=== PATIENT | male | born 1990 | race Caucasian/White ===

== ENCOUNTER 2016-08-26 08:55 | Emergency (ER) | payer SELFPAY ==
[~2016-08-26] VITALS: Ht 177.8 cm; Wt 117.9 kg
[~2016-08-26 08:55] MED LIST: BENZONATATE100 M1 PO; KEFLEX 500MG.500 MG PO; NOMEDS *; PEN-VK500 MG PO; PHENERGAN 25MG.25 M1 PO; VOLTAREN75 MG PO
--- NOTE | 2016-08-26 09:11 | Emergency Room Report ---
History of Present Illness Time Seen by MD Hunt Presenting Problem in Triage Pt arrived:Walked Presenting Problem:PT C/O LOWER RIGHT SIDE BACK PAIN. PT DENIES ANY KNOWN INJURY OR ANY PAIN WITH URINATION. PT STATES PAIN IS WORSE WHEN HE LAYS DOWN TO TRY TO SLEEP AND THAT HE HAS PAIN THAT SOMETIMES GOES DOWN HIS RIGHT LEG Onset of symptoms date/time:/ or onset unknown for:MEDICAL HX UNKNOWN Treatment Prior to Arrival: [employer] Provided by: Sepsis Risk Assessment: Temp: 98.2 B/P: 131/86 MAP: 101 Pulse: 94 Resp: 18 Recent fever? N Clinical Suspician of Infection? N Mental Status: 1 - Regular (Normal Baseline) Sepsis Risk:Low Sepsis Risk Have you (or family members/close friends) recently traveled outside the [place]? N If Yes, where/when: Have you had exposure to infectious disease within the past month? N TB? Other? Specify: Comment The patient complains of RIGHT lower back pain since 3 days ago. No injury remembered, but he does physical labor, laying pipe. The pain worsens with certain movements particularly turning side to side as well as with certain positions. It radiates down his RIGHT medial thigh to the knee. No loss of bowel or bladder control, no numbness or weakness. No previous back problems. He has taken ibuprofen without improvement. He has trouble sleeping. ALLERGIES Coded Allergies: No Known Allergies (08/26/16) History Medical History General CAD? No Angina: No ID: No Hypertension? No Hyperlipidemia? No CHF? No DVT? No PE? No COPD? No Asthma? No Anemia? No GERD? No Gastric ulcers? No GI Bleed? No Hernia? No Thyroid Problems? No Hypothyroidism? No CVA? No Seizures? No Diabetes? No Renal Insuffiency? No End Stage Renal Disease? No UTI? No Stones? No BPH? No GB Disease: No Nephritic Syndrome? No Asplenia? No Hepatitis? No Sickle Cell Disease? No Arthritis? No Migraines? No Cataracts? No Glaucoma? No MRSA? No HIV? No TB? No Anxiety? No Depression? No Cancer? No More? No Immunization Hx DT/Tetanus 1-4 YRS Surgical Hx Previous Surgery?N Family History Family Hx Diabetes Yes Hypertension Yes Cancer Yes TB No Social History Smoking Hx Smoker: Former Smoker Tobacco: Yes Type Cigarettes Alcohol Alcohol: No Review of Systems All Other Systems Reviewed and Negative Constitutional denies fever Gastrointestinal denies abdominal pain Genitourinary denies: dysuria, frequency, hematuria. Musculoskeletal back pain Psychiatric/Neurological denies numbness, denies weakness Physical Exam Vital Signs Vital Signs Date Time Temp Pulse Resp B/P Pulse O2 O2 Flow FiO2 Ox Delivery Rate 08/26 1133 98.2 70 18 136/86 98 08/26 1129 98.2 70 18 136/86 98 08/26 1038 18 08/26 0906 98.2 94 18 131/86 97 General Appearance normal appearance, WD/WN Eye Exam - bilateral eye normal exam, bilateral eye PERRL, bilateral eye EOMI Ear, Nose, Throat hearing grossly normal, normal ENT inspection Neck normal inspection, non-tender, supple, full range of motion Respiratory Status Yes: trachea midline, chest symmetrical. No: respiratory distress. Lung Sounds bilateral: normal breath sounds, lungs clear. 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 Yes [facility] was queried for this patient? No Reason not queried - [facility] system downtime Results/Orders Laboratory Tests 08/26/16 1000: Sodium 141, Potassium 3.7, Chloride 104, Carbon Dioxide 31, BUN 11, Creatinine 1.4 H, Estimated Creat Clear 137, Estimated GFR (MDRD) 63, Glucose 99, Calcium 8.7, Total Bilirubin 0.6, AST 19, ALT 32, Alkaline Phosphatase 91, Total Protein 7.4, Albumin 3.5, Globulin 3.9 H, Albumin/Globulin Ratio 0.9 L, WBC 10.4, RBC 5.46, Hgb 16.3, Hct 48.2, MCV 88.4, RDW 13.4, Plt Count 181, MPV 7.5, Gran % 68.1, Gran # 7.1, Lymphocytes % 21.1, Monocytes % 5.4, Eosinophils % 4.6, Basophils % 0.8, Lymphocytes # 2.2, Monocytes # 0.6, Eosinophils # 0.5 H, Basophils # 0.1, PUBS MCHC 33.8, MCH 29.9 08/26/16 0930: Urine Color YELLOW, Urine Appearance CLEAR, Urine pH 6.5, Ur Specific [place] 1.015, Urine Protein TRACE H, Urine Ketones NEGATIVE, Urine Blood 1+ H, Urine Nitrate NEGATIVE, Urine Bilirubin NEGATIVE, Urine Urobilinogen 0.2, Ur Leukocyte Esterase NEGATIVE, Urine RBC OCC, Urine WBC OCC, Urine Bacteria 1+, Urine Mucus OCC, Urine Glucose NEGATIVE Current Medication Orders Sig/Tha Start time Last Medication Dose Route Stop Time Status Admin Ondansetron HCl 0 .STK-MED ONE 08/26 1012 DC .ROUTE Sodium Chloride 1,000 ML .STK-MED ONE 08/26 1012 DC IV Ketorolac 0 .STK-MED ONE 08/26 1011 DC Tromethamine .ROUTE Ketorolac 30 MG ONCE ONE 08/26 1000 DC 08/26 Tromethamine IV 08/26 1001 1038 Ondansetron HCl 4 MG ONCE ONE 08/26 1000 DC 08/26 IV 08/26 1001 1038 Sodium Chloride 10 ML PRN PRN 08/26 1000 DCD IV 08/27 0946 Sodium Chloride 1,000 ML .Q1H1M 08/26 1000 DC 08/26 IV 08/26 1100 1038 Orders Procedure Date/time Status DIET-NOTHING BY MOUTH 08/26 L Active GEN NSG/PT REQ (NOT FOR MEDS!) 08/[address] ABD/PELVIS REQ 08/26 0947 Complete IV SALINE LOCK 08/26 0947 Active CBC WITH AUTO DIFF 08/26 0947 Complete CHEM 12 PROFILE 08/26 0947 Complete URINALYSIS/COMPLETE 08/26 0920 Complete XRAY/CT/US XRAY/CT/US CT abdomen, pelvis Comment CT scan interpreted by radiologist: Small RIGHT UVJ stone with mild hydronephrosis Progress - 10:54 AM: Discussed results. The patient is feeling better. Departure Departure Disposition DC Home or Self Care(routine) Clinical Impression Primary Impression: Right ureteral calculus Condition STABLE Referrals Ann Marie MCKEON,Luis Wilson Call for appointment if stone not passed within 2-3 days. Patient Instructions DI for Kidney Stones Additional Instructions Additional instructions for KIDNEY STONE: See your physician as soon as possible for further evaluation. Return immediately if you develop a fever or have uncontrollable vomiting or uncontrollable pain. What is known about DIET and KIDNEY STONES: Most kidney stones contain calcium oxalate. The logical assumption would be that you should avoid calcium and oxalate in your diet. Contrary to what you would think, this is not necessarily the case. What is actually recommended for kidney stone prevention is a diet that contains MODERATELY HIGH AMOUNTS OF CALCIUM and is LOW IN SODIUM with PLENTY OF FLUIDS. Avoiding oxalate containing foods is recommended by some experts, but is controversial. Following the DASH (Dietary Approaches to Stop Hypertention) has been shown to significantly reduce the incidence of kidney stones. The DASH diet encourages you to reduce the sodium in your diet and eat a variety of foods rich in nutrients that help lower blood pressure, such as potassium, calcium and magnesium. Recommendations: Fluids: It is widely agreed upon that you need to drink plenty of fluids. A minimum would be 8-10 glasses (8 oz each) of fluid per day. Some experts recommend as much as 14-15 glasses a day. Sodium: The way to lower calcium in your urine is to lower your sodium intake. Try not to get more than 1500 mg a day. Calcium: Dietary calcium prevents absorption of oxalate. Make sure you get about 1000 to 1200 mg a day. You can get enough calcium from dairy products without taking supplements. Do not overdo it. Calcium should be ingested with meals, not in between meals. You need to get your calcium at mealtime to decrease the absorption of oxalate from other foods. Oxalate: Although some experts recommend avoiding oxalate in your diet, there have been no studies that prove this works. Eating more calcium will reduce oxalate absorption, and is probably all that is needed to reduce oxalate in your urine. Oxalate containing foods are generally good for you in all other respects - leafy greens, nuts, etc... So avoiding them unnecessarily might not be the best thing for your health. If you want to do something to avoid oxalate , avoid spinach and rhubarb - those are extremely high in oxalate (or at least eat a high calcium meal with these). ALSO: If you retrieve your stone by straining your urine, take it to your physician for stone analysis, which can help tailor your dietary recommendations. For further reading, check out the [facility] web page about the kidney stone diet: [email or web address] Additional instructions for CONTROLLED SUBSTANCES: You have been prescribed a medication that is a controlled substance. Controlled substances include pain medications known as opiates and sedative nerve medications known as benzodiazepines. Some common opiates include: Codeine (such as Tylenol #3) Hydrocodone (Vicodin, Lortab, Lorcet, [place]) Oxycodone (Percocet, Percodan, Oxycodone, Oxy IR) Some common benzodiazepines include: Diazepam (Valium) Lorazepam (Ativan) Alprazolam (Xanax) Clonazepam (Klonopin) Oxazepam (Serax) All of these controlled substances are highly addictive and frequently abused. Misuse can and frequently does lead to addiction as well as overdose and . Short term supplies, 3 days or less, are prescribed because of the highly addictive nature of the medication. Any of the controlled substance medication NOT taken should be disposed of properly and NOT SAVED. The recommended method of disposing of unused medications is: Place the medicines in a sealable plastic bag. If the medicine is a solid, crush it or add water to dissolve it. Add something undesirable (cat litter, coffee grounds, etc.) Dispose of sealed bag in household trash Do not flush or pour unused medicines down a sink or drain. Also, because of the addictive nature and frequent abuse, these medications are sometimes stolen. These medications should be kept in a safe place where they cannot be stolen. Do not keep them in your car or purse. Lost or stolen prescriptions for controlled substances WILL NOT BE REFILLED in this emergency department, regardless of whether a police report was filed. Prescriptions Current Visit Scripts TAMSULOSIN HCL (Flomax) 0.4 MG PO QHS #10 CAP Ondansetron (Zofran 4MG Odt) 4 MG PO Q8HP PRN NAUSEA AND VOMITING #10 ODT OXYCODONE HCL/ACETAMINOPHEN (Percocet 5-325 MG Tablet) 1 TAB PO Q6HP PRN pain #10 TAB Ibuprofen (Ibuprofen 800MG) 800 MG PO Q8HP PRN pain #15 TAB ED Critical Care Critical Care No Electronically Signed by Alli Pulido MD 08/26/16 at 123
[2016-08-26 09:34] LABS: URINE BILIRUBIN - DIPSTICK NEGATIVE (NEG); URINE BLOOD 1+ (NEG)
--- OUTSIDE RECORDS SUMMARY | 2016-08-26 09:42 | External Medical Summary Rpt ---
Author Author , MAYNOR MCGUIRE Address Unknown Phone [email or web address] Care Team Providers Care Vibration Engineer Name Role Phone ROSMERY ESPINAL, Unavailable Unavailable ROSMERY ESPINAL WILLIAM A, Unavailable Unavailable [facility], Unavailable [facility]available [facility] YASMIN LOW, Unavailable Unavailable YASMIN LOW MICHAEL S, Unavailable Unavailable FRED BANGURA RITA R, Unavailable Unavailable BALB[facility] LEIVA [facility], [facility] Unavailable [facility], [facility] CHAPARRO JACKSON, Unavailable Unavailable CHAPARRO JACKSON NICHOLS Unavailable Unavailable MARLENE SIMS Unavailable Unavailable MERCEDES MONTGOMERY, Unavailable Unavailable MERCEDES ROSARIO [id number], Unavailable Unavailable [id number] KIT LINDA, Unavailable Unavailable KIT LINDA BABATUNDE O, Unavailable Unavailable NEERAJ SLATER Purpose Continuity of Care Document - 10-23-2006 through 2016 Problems Code Diagnosis DOS Provider Status 81860 PAIN IN 01-17-2010 MARLENE LONG JOINT, HAND 3530 BRACHIAL 07-06-2009 [facility]US FAMILY LESIONS CHIROPRACTI C 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 C 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 C 7398 NONALLOPATH 07-06-[facility] IC LESION FAMILY OF RIB CAGE CHIROPRACTI NEC C 486 PNEUMONIA, 12-03-2008 [facility] 4019 UNSPECIFIED 11-26-2008 [facility] 08349 HYPOXEMIA 11-26-2008 [facility] 4660 ACUTE 11-24-2008 [facility] 490 BRONCHITIS 11-24-2008 [place] NOT EMERGENCY SPECIFIED SERVICES ACUTE OR ASSOCIATES CHRONIC 7862 COUGH 11-24-2008 [facility] 6926 CONTACT 08-06-2008 MARLENE DERMATITIS& MERCEDES A OTHER ECZEMA DUE TO PLANTS 3670 HYPERMETROP 04-23-2008 RUBEN IA VISION 4659 ACUTE URIS 04-19-2008 RENE ROSARIO MERCEDES A UNSPECIFIED SITE 46071 UNSPECIFIED 02-24-2008 [facility] SITE OF [employer] SPRAIN AND STRAIN E8490 PLACE OF 02-24-2008 [place] [facility] E9278 OTH 02-24-2008 [place] OVEREXERT&S MEDICAL TRENUOUS&RE IMAGING PETITIVE ASSOC[facility]ATES MVMNTS/LOAD S 5589 OTH&UNSPEC 01-16-2008 ISRRAEL ROSARIOFECTMARY Zimmer [facility] ITIS&COLITI S 7242 LUMBAGO 12-16-2007 MERCEDES ROSARIO 61303 CHEST PAIN 09-27-2007 ALY ROSARIOIFIED MERCEDES Zimmer 4619 ACUTE 07-01-2007 [facility] UNSPECIFIED INC 7840 HEADACHE 07-01-2007 [facility] 4730 CHRONIC 10-23-2006 MARLENE MAXILLARY MERCEDES Z[facility] SINUSITIS Medications Na ND Rx Da Fi Fi Am Da Di Ph RX Ph St me C No te ll ll ou ys ag ar # ys at rm s nt no ma ic us Or Da si cy ia de te s n re d 59 10 11 00 8. 16 RI 80 OLY Ac 31 -1 -0 50 TE 45 CO ti 00 6- 5- 0 83 OK ve 57 20 20 AI 92 09 09 D JE 0 PH SS AR IC M A #3 D 93 8 CL 00 10 11 00 14 7 RI 80 OLY Ac AR 09 -1 -0 .0 TE 45 CO ti IT 37 6- 5- 00 82 OK ve HR 15 20 20 AI OM 80 09 09 D JE YC 6 PH SS IN AR IC M A 50 #3 D 0 93 MG 8 TA BL ET ME 00 10 10 00 50 12 RI 80 NI Ac TH 60 -0 -2 .0 TE 28 CH ti OC 34 5- 2- 00 54 OL ve AR 48 20 20 AI S BA 62 09 09 D LORE MO 1 PH E L AR A 75 M 0 #3 MG 93 8 TA BL ET CE 00 10 10 00 30 10 RI 80 NI Ac PH 14 -1 -2 .0 TE 37 CH ti AL 39 2- 2- 00 54 OL ve EX 89 20 20 AI S IN 70 09 09 D LORE 1 PH E 50 AR A 0 M MG #3 93 CA 8 PS UL E 60 10 10 00 12 4 RI 80 NI Ac 25 -1 -2 0. TE 37 CH ti 80 2- 2- 00 53 OL ve 23 20 20 0 AI S 91 09 09 D LORE 6 PH E AR A M #3 93 8 AK 68 10 10 00 12 4 CL 20 SO Ac OM 38 -1 -2 .0 IN 26 KA ti ET 20 4- 2- 00 IC 88 N ve FARAH 04 20 20 BA ZI 10 09 09 PH BA NE 1 AR TU MA ND 25 CY E O MG TA BL ET HY 00 06 07 00 28 8 CL [address] 16 -2 -0 .3 IN 62 CH ti OC 80 6- 2- 50 IC 14 OL ve OR 01 20 20 S TI 53 09 09 PH LORE SO 1 AR E NE MA A CY 1% CR EA M CE 00 03 06 00 30 10 RI 77 NI Ac PH 14 -0 -0 .0 TE 64 CH ti AL 39 9- 4- 00 72 OL ve EX 89 20 20 AI S IN 70 09 09 D LORE 1 PH E 50 AR A 0 M MG #3 93 CA 8 PS UL E CE 00 03 03 00 30 10 RI 77 NI Ac PH 14 -0 -2 .0 TE 42 CH ti AL 39 9- 6- 00 58 OL ve EX 89 20 20 AI S IN 70 09 09 D LORE 1 PH E 50 AR A 0 M MG #3 93 CA 8 PS UL E BU 00 02 02 00 36 3 RI 76 NI Ac TA 60 -0 -1 .0 TE 90 CH ti LB 32 2- 2- 00 69 OL ve -A 54 20 20 AI S CE 42 09 09 D LORE TA 1 PH E VT AR A N- M CA #3 FF 93 8 50 -3 25 -4 0 BU 00 11 12 00 36 3 RI 75 NI Ac TA 60 -2 -0 .0 TE 98 CH ti LB 32 6- 4- 00 84 OL ve -A 54 20 20 AI S CE 42 08 08 D LORE TA 1 PH E VT AR A N- M CA #3 FF 93 8 50 -3 25 -4 0 ME 00 11 11 00 50 12 RI 75 NI Ac TH 60 -0 -2 .0 TE 66 CH ti OC 34 4- 0- 00 05 OL ve AR 48 20 20 AI S BA 62 08 08 D LORE MO 1 PH E L AR A 75 M 0 #3 MG 93 8 TA BL ET BU 00 10 10 00 36 4 RI 75 NI Ac TA 60 -0 -0 .0 TE 23 CH ti LB 32 3- 9- 00 85 OL ve -A 54 20 20 AI S CE 42 08 08 D LORE TA 1 PH E VT AR A N- M CA #3 FF 93 8 50 -3 25 -4 0 00 09 10 00 18 2 RI 75 NI Ac 78 -2 -0 .0 TE 06 CH ti 11 2- 9- 00 42 OL ve 26 20 20 AI S 20 08 08 D LORE 1 PH E AR A M #3 93 8 BU 00 09 09 00 36 4 RI 74 NI Ac TA 60 -1 -2 .0 TE 93 CH ti LB 32 2- 6- 00 57 OL ve -A 54 20 20 AI S CE 42 08 08 D LORE TA 1 PH E VT AR A N- M CA #3 FF 93 8 50 -3 25 -4 0 BU 00 07 08 00 36 4 RI 74 NI Ac TA 60 -2 -1 .0 TE 30 CH ti LB 32 8- 4- 00 48 OL ve -A 54 20 20 AI S CE 42 08 08 D LORE TA 1 PH E VT AR A N- M CA #3 FF 93 8 50 -3 25 -4 0 BU 00 06 07 00 36 4 RI 73 NI Ac TA 60 -2 -0 .0 TE 81 CH ti LB 32 0- 3- 00 50 OL ve -A 54 20 20 AI S CE 42 08 08 D LORE TA 1 PH E VT AR A N- M CA #3 FF 93 8 50 -3 25 -4 0 BU 00 05 06 00 36 4 RI 73 NI Ac TA 60 -2 -0 .0 TE 40 CH ti LB 32 0- 5- 00 08 OL ve -A 54 20 20 AI S CE 42 08 08 D LORE TA 1 PH E VT AR A N- M CA #3 FF 93 8 50 -3 25 -4 0 00 05 06 00 10 5 RI 73 No Ac 59 -1 -0 .0 TE 38 t ti 10 8- 5- 00 15 Av ve 33 20 20 AI ai 90 08 08 D la 1 PH bl AR e M #3 93 8 CE 00 05 06 00 21 7 RI 73 No Ac PH 09 -1 -0 .0 TE 38 t ti AL 33 8- 5- 00 16 Av ve EX 14 20 20 AI ai IN 70 08 08 D la 1 PH bl 50 AR e 0 M MG #3 93 CA 8 PS UL E CE 00 05 05 00 30 10 RI 73 No Ac PH 09 -0 -2 .0 TE 20 t ti AL 33 6- 2- 00 47 Av ve EX 14 20 20 AI ai IN 70 08 08 D la 1 PH bl 50 AR e 0 M MG #3 93 CA 8 PS UL E 60 05 05 00 12 4 RI 73 No Ac 25 -0 -2 0. TE 20 t ti 80 6- 2- 00 48 Av ve 23 20 20 0 AI ai 91 08 08 D la 6 PH bl AR e M #3 93 8 60 02 04 00 12 4 RI 72 No Ac 25 -2 -0 0. TE 17 t ti 80 6- 7- 00 27 Av ve 23 20 20 0 AI ai 91 08 08 D la 6 PH bl AR e M #3 93 8 CE 00 02 04 00 30 10 RI 72 No Ac PH 09 -2 -0 .0 TE 17 t ti AL 33 6- 7- 00 26 Av ve EX 14 20 20 AI ai IN 70 08 08 D la 1 PH bl 50 AR e 0 M MG #3 93 CA 8 PS UL E AM 00 02 03 00 30 10 RI 71 No Ac OX 09 -0 -2 .0 TE 79 t ti IC 33 2- 6- 00 90 Av ve IL 10 20 20 AI ai LI 90 08 08 D la N 5 PH bl 50 AR e 0 M MG #3 93 CA 8 PS UL E 60 02 03 00 12 5 RI 71 No Ac 25 -0 -2 0. TE 79 t ti 80 2- 6- 00 89 Av ve 23 20 20 0 AI ai 91 08 08 D la 6 PH bl AR e M #3 93 8 Procedures Procedure DOS Code Location Performer Comment RADEX 48756 [facility] MINIMUM 3 INC INC VIEWS CHIROPRAC 15256 XIANG LEIVA, TIC 0 FAMILY BALBINA R MANIPULAT CHIROPRAC JÚNIOR TX TIC SPINAL 3-4 REGIONS APPL 05-26-201 78409 XIANG LEIVA, MODALITY 0 FAMILY BALB[place] R 1/> AREAS CHIROPRAC TRACTION TIC MECHANICA L APPL 05788 XIANG LEIVA, MODALITY 0 FAMILY BALB[place] R 1/> AREAS CHIROPRAC ELEC TIC STIMJ UNATTENDE D CHIROPRAC 07031 XIANG LEIVA, TIC 0 FAMILY [place] R MANIPLTV CHIROPRAC TX TIC EXTRASPIN AL 1/> REGION THERAPEUT 54907 XIANG LEIVA, IC PX 1/> 0 FAMILY BALBINA R AREAS CHIROPRAC EACH 15 TIC MIN EXERCISES THERAPEUT 91831 XIANG LEIVA, ACTVITY 0 FAMILY BALB[place] R DIRECT PT CHIROPRAC CONTACT TIC EACH 15 MIN STRAPPING 98389 XIANG LEIVA, THORAX 0 FAMILY BAL[place] R CHIROPRAC TIC STRAPPING 38936 XIANG LEIVA, THORAX 0 FAMILY BALBINA R CHIROPRAC TIC THERAPEUT 21416 XIANG LEIVA, ACTVITY 0 FAMILY BALB[place] R DIRECT PT CHIROPRAC CONTACT TIC EACH 15 MIN THERAPEUT 89913 XIANG LEIVA, IC PX 1/> 0 FAMILY BALBINA R AREAS CHIROPRAC EACH 15 TIC MIN EXERCISES CHIROPRAC 34869 XIANG LEIVA, TIC 0 FAMILY BALB[place] R MANIPLTV CHIROPRAC TX TIC EXTRASPIN AL 1/> REGION APPL 79195 XIANG LEIVA, MODALITY 0 FAMILY BALBINA R 1/> AREAS CHIROPRAC TRACTION TIC MECHANICA L APPL 15517 XIANG LEIVA, MODALITY 0 FAMILY BALBINA R 1/> AREAS CHIROPRAC ELEC TIC STIMJ UNATTENDE D CHIROPRAC 92300 XIANG LEIVA, TIC 0 FAMILY BALB[place] R MANIPULAT CHIROPRAC JÚNIOR TX TIC SPINAL 3-4 REGIONS CHIROPRAC 84176 XIANG LEIVA, TIC 0 FAMILY BALB[place] R MANIPULAT CHIROPRAC JÚNIOR TX TIC SPINAL 3-4 REGIONS APPL 52300 XIANG LEIVA, MODALITY 0 FAMILY BALBINA R 1/> AREAS CHIROPRAC TRACTION TIC MECHANICA L APPL 31065 XIANG LEIVA, MODALITY 0 FAMILY BALBINA R 1/> AREAS CHIROPRAC ELEC TIC STIMJ UNATTENDE D CHIROPRAC 26118 XIANG LEIVA, TIC 0 FAMILY BAL[place] R MANIPLTV CHIROPRAC TX TIC EXTRASPIN AL 1/> REGION THERAPEUT 24102 XIANG LEIVA, IC PX 1/> 0 FAMILY BALB[place] R AREAS CHIROPRAC EACH 15 TIC MIN EXERCISES THERAPEUT 39538 XIANG LEIVA, ACTVITY 0 FAMILY BAL[place] R DIRECT PT CHIROPRAC CONTACT TIC EACH 15 MIN THERAPEUT 68960 XIANG ABBIE, IC PX 1/> 0 FAMILY BALB[place] R AREAS CHIROPRAC EACH 15 TIC MIN EXERCISES CHIROPRAC 05100 XIANG LEIVA, TIC 0 FAMILY [place] R MANIPULAT CHIROPRAC JÚNIOR TX TIC SPINAL 1-2 REGIONS APPL 14549 XIANG LEIVA, MODALITY 0 FAMILY BALBINA R 1/> AREAS CHIROPRAC ELEC TIC STIMJ UNATTENDE D MANUAL 48753 XIANG LEIVA, THERAPY 0 FAMILY BALBINA R TQS 1/> CHIROPRAC REGIONS TIC EACH 15 MINUTES CHIROPRAC 55540 XIANG LEIVA, TIC 0 FAMILY [place] R MANIPLTV CHIROPRAC TX TIC EXTRASPIN AL 1/> REGION CHIROPRAC 74786 XIANG LEIVA, TIC 0 FAMILY BALB[place] R MANIPULAT CHIROPRAC JÚNIOR TX TIC SPINAL 3-4 REGIONS APPL 90747 XIANG LEIVA, MODALITY 0 FAMILY BALBINA R 1/> AREAS CHIROPRAC TRACTION TIC MECHANICA L APPL 44324 XINAG LEIVA, MODALITY 0 FAMILY BALBINA R 1/> AREAS CHIROPRAC ELEC TIC STIMJ UNATTENDE D CHIROPRAC 12624 XIANG LEIVA, TIC 0 FAMILY [place] R MANIPLTV CHIROPRAC TX TIC EXTRASPIN AL 1/> REGION THERAPEUT 94319 LYLEMarkLATOYA ABBIE, IC PX 1/> 0 FAMILY BALBINA R AREAS CHIROPRAC EACH 15 TIC MIN EXERCISES CHIROPRAC 79540 XIANG LEIVA, TIC 0 FAMILY BALB[place] R MANIPULAT CHIROPRAC JÚNIOR TX TIC SPINAL 1-2 REGIONS CHIROPRAC 93888 XIANG LEIVA, TIC 0 FAMILY BALBINA R MANIPLTV CHIROPRAC TX TIC EXTRASPIN AL 1/> REGION THERAPEUT 51205 XIANG LEIVA, IC PX 1/> 0 FAMILY BALBINA R AREAS CHIROPRAC EACH 15 TIC MIN EXERCISES APPL 53928 XIANG LEIVA, MODALITY 0 FAMILY BALBINA R 1/> AREAS CHIROPRAC ELEC TIC STIMJ UNATTENDE D MANUAL 88770 LYLEMAURISIO LEIVA, THERAPY 0 FAMILY BALBINA R TQS 1/> CHIROPRAC REGIONS TIC EACH 15 MINUTES APPL 34187 XIANG ABBIE, MODALITY 0 FAMILY BALBINA R 1/> AREAS CHIROPRAC TRACTION TIC MECHANICA L STRAPPING 24524 XIANG LEIVA, THORAX 0 FAMILY BALBINA R CHIROPRAC TIC MANUAL 66452 LYLEMAURISIO LEIVA THERAPY 0 FAMILY BALBINA R TQS 1/> CHIROPRAC REGIONS TIC EACH 15 MINUTES APPL 17283 XIANG LEIVA, MODALITY 0 FAMILY BALBINA R 1/> AREAS CHIROPRAC TRACTION TIC MECHANICA L THERAPEUT 00162 XIANG ABBIE, IC PX 1/> 0 FAMILY BALBINA R AREAS CHIROPRAC EACH 15 TIC MIN EXERCISES CHIROPRAC 54752 XIANG LEIVA, TIC 0 FAMILY BALB[place] R MANIPULAT CHIROPRAC JÚNIOR TX TIC SPINAL 1-2 REGIONS CHIROPRAC 83336 XIANG ABBIE, TIC 0 FAMILY BALB[place] R MANIPLTV CHIROPRAC TX TIC EXTRASPIN AL 1/> REGION ROM 24549 LYLEMAURISIO LEIVA, LYDIA&REPR 0 FAMILY BALBINA R T EA XTR CHIROPRAC EX TIC HAND/EA TRNK SCTJ SPI STRAPPING 44939 LYLEMAURISIO LEIVA, THORAX 0 FAMILY BALBINA R CHIROPRAC TIC CHIROPRAC 47527 XIANG LEIVA, TIC 0 FAMILY BALB[place] R MANIPLTV CHIROPRAC TX TIC EXTRASPIN AL 1/> REGION STRAPPING 30490 XIANG LEIVA, THORAX 0 FAMILY BALBINA R CHIROPRAC TIC THERAPEUT 37417 XIANG LEIVA, IC PX 1/> 0 FAMILY BALBINA R AREAS CHIROPRAC EACH 15 TIC MIN EXERCISES APPL 88179 XIANG LEIVA, MODALITY 0 FAMILY BALBINA R 1/> AREAS CHIROPRAC TRACTION TIC MECHANICA L MANUAL 75426 XIANG LEIVA, THERAPY 0 FAMILY BALBINA R TQS 1/> CHIROPRAC REGIONS TIC EACH 15 MINUTES CHIROPRAC 28016 XIANG LEIVA, TIC 0 FAMILY BALB[place] R MANIPULAT CHIROPRAC JÚNIOR TX TIC SPINAL 3-4 REGIONS MANUAL 18612 XIANG LEIVA, THERAPY 0 FAMILY BALBINA R TQS 1/> CHIROPRAC REGIONS TIC EACH 15 MINUTES CHIROPRAC 67056 XIANG LEIVA, TIC 0 FAMILY BALB[place] R MANIPULAT CHIROPRAC JÚNIOR TX TIC SPINAL 1-2 REGIONS APPL 63254 XIANG LEIVA, MODALITY 0 FAMILY BALBINA R 1/> AREAS CHIROPRAC ELEC TIC STIMJ UNATTENDE D APPL 02328 XAING LEIVA, MODALITY 0 FAMILY BALBINA R 1/> AREAS CHIROPRAC TRACTION TIC MECHANICA L THERAPEUT 82825 XIANG LEIVA, IC PX 1/> 0 FAMILY BALBINA R AREAS CHIROPRAC EACH 15 TIC MIN EXERCISES CHIROPRAC 99930 XIANG LEIVA, TIC 0 FAMILY [place] R MANIPLTV CHIROPRAC TX TIC EXTRASPIN AL 1/> REGION RADEX 16992 XIANG LEIVA, SPINE 0 FAMILY BALB[place] R CERVICAL CHIROPRAC 2 OR 3 TIC VIEWS RADEX 39883 XIANG LEIVA, SPINE 0 FAMILY BALB[place] R LUMBOSACR CHIROPRAC AL 2/3 TIC VIEWS CHIROPRAC 74006 XIANG LEIVA, TIC 0 FAMILY BALB[place] R MANIPLTV CHIROPRAC TX TIC EXTRASPIN AL 1/> REGION THERAPEUT 72772 XIANG LEIVA, IC PX 1/> 0 FAMILY BALB[place] R AREAS CHIROPRAC EACH 15 TIC MIN EXERCISES APPL 44051 LYLELATOYA LEIVA, MODALITY 0 FAMILY BALB[place] R 1/> AREAS CHIROPRAC ELEC TIC STIMJ UNATTENDE D SELF-CARE 84228 INWOODLATOYA LEIVA, /HOME 0 FAMILY BALB[place] R MGMT CHIROPRAC TRAINING TIC EACH 15 MINUTES CHIROPRAC 60828 XIANG LEIVA, TIC 0 FAMILY BAL[place] R MANIPULAT CHIROPRAC JÚNIOR TX TIC SPINAL 3-4 REGIONS STRAPPING 12576 FAYETTEMAURISIO LEIVA, THORAX 0 FAMILY [place] R CHIROPRAC TIC RADIOLOGI 54863 [place] Hank JACKSON EXAM 9 [facility] CHEST 2 IMAGING VIEWS ASSOCIATE FRONTAL&L S ATERAL INITIAL 99278 [facility] ESP[facility] 9 PRACTICE ROSMERY [place] ON ASSOCIATE CARE/DAY S OF 30 [facility]K FABRICE , PSYCHIATRIC RADIOLOGI 32938 [facility]LL[facility] C EXAM 9 [facility] CHEST 2 INC INC VIEWS FRONTAL&L ATERAL IAADI 88580 [facility] INFLUENZA 9 [facility] B VIRUS INC INC IAADI 37327 [facility] GE[facility] INFFLUENZ 9 [facility] A A [facility]IRUS INC INC RADIOLOGI 60507 [facility]I GELLER C EXAM 9 [facility] CHEST 2 INC INC VIEWS FRONTAL&L ATERAL FRAMES V2020 RUBEN LINDA, PURCHASES 9 VISION KIT Goldsmith OPHTH 26536 RUBEN LINDA MEDICAL 9 [facility]ISION [facility]IT [facility] XM&EVAL COMPRE NEW PT 1/> VST FITTING 06596 RUBEN LINDA, SPECTACLE 9 VISION [facility] [employer] S XCPT APHAKIA MONOFOCAL SPHERE V2100 RUBEN LINDA SINGLE 9 VISION [facility]IT [facility] VISION PLANO +/- 4.00 PER LENS RADEX 15346 [place] DEVANTE, ANKLE 9 MEDICAL YASMIN COMPLETE IMAGING MINIMUM 3 ASSOCIATE VIEWS S RADEX 09035 [facility] FOOT 9 [facility] COMPLETE INC INC MINIMUM 3 VIEWS 3D 32053 ERICKSON RENETTA, RENDERING 8 [facility] IMAGING W/INTERP& [place]OCI[place] [address] [facility] MAXILLOFA 8 [facility] CIAL W/O INC INC CONTRAST MATERIAL 3D 75779 [facility] GE[facility] RENDERING 8 [facility] W/INTERP INC INC & [place] [address] ERICKSON RENETTA, HEAD/BRAI 8 MEDICAL [facility] N W/O IMAGING CONTRAST ASSOCIATE MATERIAL S Encounters Encounter Start End Date Code Location Performer Type Date OFFICE 20924 MARLENE REDDYPATIEN 0 0 MERCEDES MERCEDES T VISIT 15 MINUTES OFFICE 14801 MARLENE REDDYPATIEN 0 0 MERCEDES MERCEDES T VISIT 15 MINUTES [facility]OSPITAL [facility] - 0 0 [facility]PATI[facility] INC T OFFICE 11277 PATH[facility]K DANIEL LEIVA 0 0 FAMILY BALBINA R T NEW 20 CHIROPRAC MINUTES [facility] - 9 9 [facility] OUTPATIEN INC HOSPITAL SAMANTHA - 9 9 [facility] EMERGENCY 79160 ERNESTINA JOHNSON DEPT 9 9 EMERGENCY , TOMY VISIT SERVICES A HIGH SEVERITY& ASSOCIATE THREAT S FUN EMERGENCY 51228 [facility]I 9 9 [facility] DEPARTMEN INC T VISIT MODERATE SEVERITY EMERGENCY 87440 ERNESTINA SLATER, 9 9 EMERGENCY [facility] DEPARTMEN SERVICES O T VISIT HIGH/URGE ASSOCIATE NT S SEVERITY HOSPITAL [facility] - 9 9 [facility] OUTPATIEN INC T OFFICE 29111 MARLENE ROSARIO OUTPATIEN 9 9 MERCEDES A MERCEDES A T VISIT 15 MINUTES OFFICE 32240 MARLENE ROSARIO OUTPATIEN 9 9 MERCEDES A MERCEDES A T VISIT 15 MINUTES OFFICE 40484 MARLENE ROSARIO OUTPATIEN 9 9 MERCEDES A MERCEDES A T VISIT 15 MINUTES OFFICE 41204 MARLENE ROSARIO OUTPATIEN 9 9 MERCEDES A MERCEDES A T VISIT 15 MINUTES [facility]OSPITAL [facility] - 9 9 [facility] OFF[facility] 60299 MARLENE ROSARIO OUTPATIEN 9 9 MERCDEES A MERCEDES A T VISIT 15 MINUTES EMERGENCY 95665 ANDRES BANGURA, 9 9 [facility] T VISIT ON MODERATE SEVERITY HOSPITAL [facility] - 9 9 [facility] T EMER[facility]ENC[facility] 31123 [facility] 9 9 [facility]ISIT LOW/MODER SEVERITY OFFICE 77044 MARLENE ROSARIO OUTPATIEN 8 8 MERCEDES A MERCEDES A T VISIT 15 MINUTES OFFICE 43045 MARLENE ROSARIO OUTPATIEN 8 8 MERCEDES A MERCEDES A T VISIT 15 MINUTES OFFICE 65565 MARLENE ROSARIO OUTPATIEN 8 8 MERCEDES A MERCEDES A T VISIT 15 MINUTES OFFICE 83175 MARLENE ROSARIO OUTPATIEN 8 8 MERCEDES A MERCEDES A T VISIT 15 MINUTES EMERGENCY 56396 [facility] 8 8 [facility]ISIT LOW/MODER SEVERITY HOSPITAL [facility] - 8 8 [facility] OUTPATIEN INC T EMERGENCY 57066 [facility]I 8 8 [facility] LOW/MODER SEVERITY HOSPITAL IYMI - 8 8 [facility] OUTPATIEN INC T OFFICE 66850 MARLENE ROSARIO OUTPATIEN 7 7 MERCEDES Zimmer T VISIT 15 MINUTES OFFICE 45449 MARLENE ROSARIO OUTPATIEN 7 7 MERCEDES Zimmer T VISIT 15 MINUTES
--- OUTSIDE RECORDS SUMMARY | 2016-08-26 09:42 | External Medical Summary Rpt ---
Author Author , MAYNOR MCGUIRE Address Unknown Phone [email or web address] Care Team Providers Care Hair Spinner Name Role Phone ROSMERY ESPINAL, Unavailable Unavailable ROSMERY ESPINAL WILLIAM A, Unavailable Unavailable [facility], Un[facility] YASMIN LOW, Unavailable Unavailable YASMIN LOW MICHAEL S, Unavailable Unavailable FRED BANGURA RITA R, Unavailable Unavailable BALB[facility] LEIVA [facility], [facility] Unavailable [facility], [facility] CHAPARRO JACKSON, Unavailable Unavailable CHAPARR[facility] JACKSON NICHOLS Unavailable Unavailable MARLENE SIMS Unavailable Unavailable MERCEDES MONTGOMERY, Unavailable Unavailable MERCEDES ROSARIO [id number], Unavailable Unavailable [id number] KIT LINDA, Unavailable Unavailable KIT LINDA BABATUNDE O, Unavailable Unavailable NEERAJ SLATER Purpose Continuity of Care Document - 10-23-2006 through 2016 Problems Code Diagnosis DOS Provider Status 20909 PAIN IN 01-17-2010 MARLENE LONG JOINT, HAND 3530 BRACHIAL 07-06-2009 [place] [facility] LESIONS CHIROPRACTI C 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 PELVIS CHIROPRACTI C 7398 NONALLOPATH 07-06-[facility] IC LESION FAMILY OF RIB CAGE CHIROPRACTI NEC C 486 PNEUMONIA, 12-03-2008 [facility] 4019 UNSPECIFIED 11-26-2008 [facility] 92993 HYPOXEMIA 11-26-2008 [facility] 4660 ACUTE 11-24-2008 [facility] 490 BRONCHITIS 11-24-2008 [facility] NOT EMERGENCY SPECIFIED SERVICES ACUTE OR ASSOCIATES CHRONIC 7862 COUGH 11-24-2008 [place] [facility] 6926 CONTACT 08-06-2008 MARLENE DERMATITIS& MERCEDES A OTHER ECZEMA DUE TO PLANTS 3670 HYPERMETROP 04-23-2008 R[facility] IA [facility] 4659 ACUTE URIS 04-19-2008 RENE ROSARIO MERCEDES A UNSPECIFIED SITE 19277 UNSPECIFIED 02-24-2008 [place] [facility] OF [facility] SPRAIN AND STRAIN E8490 PLACE OF 02-24-2008 [place] OCCURRENCE, [facility] E9278 OTH 02-24-2008 [place] OVEREXERT&S MEDICAL TRENUOUS&RE IMAGING PETITIVE ASSOC[facility]ATES MVMNTS/LOAD S 5589 OTH&UNSPEC 01-16-2008 ISRRAEL ROSARIOFECTMARY Zimmer [facility] ITIS&COLITI S 7242 LUMBAGO 12-16-2007 MERCEDES ROSARIO 76343 CHEST PAIN 09-27-2007 ALY ROSARIOIFIED MERCEDES Zimmer 4619 ACUTE 07-01-2007 [place] [facility] UNSPECIFIED INC 7840 HEADACHE 07-01-2007 [facility] 4730 CHRONIC 10-23-2006 MARLENE [...] E AR A M #3 93 8 MI 68 10 10 00 12 4 CL [...] 09 D LORE TA 1 PH E CA AR A N- M CA #3 FF 93 8 50 -3 25 -4 0 BU 00 11 12 00 36 3 RI 75 NI Ac TA 60 -2 -0 .0 TE 98 CH ti LB 32 6- 4- 00 84 OL ve -A 54 20 20 AI S CE 42 08 08 D LORE TA 1 PH E CA AR A N- M CA #3 FF [...] 08 D LORE TA 1 PH E CA AR A N- M CA #3 FF [...] 08 D LORE TA 1 PH E CA AR A N- M CA #3 FF 93 8 50 -3 25 -4 0 BU 00 07 08 00 36 4 RI 74 NI Ac TA 60 -2 -1 .0 TE 30 CH ti LB 32 8- 4- 00 48 OL ve -A 54 20 20 AI S CE 42 08 08 D LORE TA 1 PH E CA AR A N- M CA #3 FF 93 8 50 -3 25 -4 0 BU 00 06 07 00 36 4 RI 73 NI Ac TA 60 -2 -0 .0 TE 81 CH ti LB 32 0- 3- 00 50 OL ve -A 54 20 20 AI S CE 42 08 08 D LORE TA 1 PH E CA AR A N- M CA #3 FF 93 8 50 -3 25 -4 0 BU 00 05 06 00 36 4 RI 73 NI Ac TA 60 -2 -0 .0 TE 40 CH ti LB 32 0- 5- 00 08 OL ve -A 54 20 20 AI S CE 42 08 08 D LORE TA 1 PH E CA AR A N- M CA #3 FF [...] Procedure DOS Code Location Performer Comment RADEX 74205 [facility] HAND [facility] MINIMUM 3 INC INC VIEWS CHIROPRAC 37879 XIANG LEIVA, TIC 0 FAMILY [place] R MANIPULAT CHIROPRAC JÚNIOR TX TIC SPINAL 3-4 REGIONS APPL 05-26-201 12086 XIANG LEIVA, MODALITY 0 FAMILY [place] R 1/> AREAS CHIROPRAC TRACTION TIC MECHANICA L APPL 07910 XIANG LEIVA, MODALITY 0 FAMILY [place] R 1/> AREAS CHIROPRAC ELEC TIC STIMJ UNATTENDE D CHIROPRAC 31473 XIANG LEIVA, TIC 0 FAMILY [place] R MANIPLTV CHIROPRAC TX TIC EXTRASPIN AL 1/> REGION THERAPEUT 83524 XIANG LEIVA, IC PX 1/> 0 FAMILY [place] R AREAS CHIROPRAC EACH 15 TIC MIN EXERCISES THERAPEUT 97611 XIANG LEIVA, ACTVITY 0 FAMILY [place] R DIRECT PT CHIROPRAC CONTACT TIC EACH 15 MIN STRAPPING 08501 XIANG LEIVA, THORAX 0 FAMILY [place] R CHIROPRAC TIC STRAPPING 22511 XIANG LEIVA, THORAX 0 FAMILY [place] R CHIROPRAC TIC THERAPEUT 65755 XIANG LEIVA, ACTVITY 0 FAMILY [place] R DIRECT PT CHIROPRAC CONTACT TIC EACH 15 MIN THERAPEUT 76600 XIANG LEIVA, IC PX 1/> 0 FAMILY [place] R AREAS CHIROPRAC EACH 15 TIC MIN EXERCISES CHIROPRAC 28353 XIANG LEIVA, TIC 0 FAMILY [place] R MANIPLTV CHIROPRAC TX TIC EXTRASPIN AL 1/> REGION APPL 45606 XIANG LEIVA, MODALITY 0 FAMILY BALB[place] R 1/> AREAS CHIROPRAC TRACTION TIC MECHANICA L APPL 18662 XIANG LEIVA, MODALITY 0 FAMILY BALB[place] R 1/> AREAS CHIROPRAC ELEC TIC STIMJ UNATTENDE D CHIROPRAC 16189 XIANG LEIVA, TIC 0 FAMILY [place] R MANIPULAT CHIROPRAC JÚNIOR TX TIC SPINAL 3-4 REGIONS CHIROPRAC 33335 XIANG LEIVA, TIC 0 FAMILY [place] R MANIPULAT CHIROPRAC JÚNIOR TX TIC SPINAL 3-4 REGIONS APPL 04258 XIANG LEIVA, MODALITY 0 FAMILY BALB[place] R 1/> AREAS CHIROPRAC TRACTION TIC MECHANICA L APPL 43849 XIANG LEIVA, MODALITY 0 FAMILY BALB[place] R 1/> AREAS CHIROPRAC ELEC TIC STIMJ UNATTENDE D CHIROPRAC 00125 XIANG LEIVA, TIC 0 FAMILY [place] R MANIPLTV CHIROPRAC TX TIC EXTRASPIN AL 1/> REGION THERAPEUT 84404 XIANG LEIVA, IC PX 1/> 0 FAMILY [place] R AREAS CHIROPRAC EACH 15 TIC MIN EXERCISES THERAPEUT 52402 XIANG LEIVA, ACTVITY 0 FAMILY [place] R DIRECT PT CHIROPRAC CONTACT TIC EACH 15 MIN THERAPEUT 07326 XIANG ABBIE, IC PX 1/> 0 FAMILY [place] R AREAS CHIROPRAC EACH 15 TIC MIN EXERCISES CHIROPRAC 02614 XIANG LEIVA, TIC 0 FAMILY [place] R MANIPULAT CHIROPRAC JÚNIOR TX TIC SPINAL 1-2 REGIONS APPL 26038 XIANG LEIVA, MODALITY 0 FAMILY BALB[place] R 1/> AREAS CHIROPRAC ELEC TIC STIMJ UNATTENDE D MANUAL 81330 XIANG LEIVA, THERAPY 0 FAMILY [place] R TQS 1/> CHIROPRAC REGIONS TIC EACH 15 MINUTES CHIROPRAC 57907 XIANG LEIVA, TIC 0 FAMILY [place] R MANIPLTV CHIROPRAC TX TIC EXTRASPIN AL 1/> REGION CHIROPRAC 99467 XIANG LEIVA, TIC 0 FAMILY [place] R MANIPULAT CHIROPRAC JÚNIOR TX TIC SPINAL 3-4 REGIONS APPL 67330 XIANG LEIVA, MODALITY 0 FAMILY BALBINA R 1/> AREAS CHIROPRAC TRACTION TIC MECHANICA L APPL 44543 XIANG LEIVA, MODALITY 0 FAMILY BALBINA R 1/> AREAS CHIROPRAC ELEC TIC STIMJ UNATTENDE D CHIROPRAC 81796 XIANG LEIVA, TIC 0 FAMILY [place] R MANIPLTV CHIROPRAC TX TIC EXTRASPIN AL 1/> REGION THERAPEUT 15483 LYLEMarkLATOYA ABBIE, IC PX 1/> 0 FAMILY [place] R AREAS CHIROPRAC EACH 15 TIC MIN EXERCISES CHIROPRAC 93451 XAING LEIVA, TIC 0 FAMILY [place] R MANIPULAT CHIROPRAC JÚNIOR TX TIC SPINAL 1-2 REGIONS CHIROPRAC 93632 XIANG LEIVA, TIC 0 FAMILY [place] R MANIPLTV CHIROPRAC TX TIC EXTRASPIN AL 1/> REGION THERAPEUT 28964 XIANG LEIVA, IC PX 1/> 0 FAMILY [place] R AREAS CHIROPRAC EACH 15 TIC MIN EXERCISES APPL 74562 XIANG LEIVA, MODALITY 0 FAMILY BALB[place] R 1/> AREAS CHIROPRAC ELEC TIC STIMJ UNATTENDE D MANUAL 11377 LYLEMAURISIO LEIVA, THERAPY 0 FAMILY BAL[place] R TQS 1/> CHIROPRAC REGIONS TIC EACH 15 MINUTES APPL 09305 XIANG ABBIE, MODALITY 0 FAMILY BALB[place] R 1/> AREAS CHIROPRAC TRACTION TIC MECHANICA L STRAPPING 44351 XIANG LEIVA, THORAX 0 FAMILY BALB[place] R CHIROPRAC TIC MANUAL 97308 LYLEMAURISIO LEIVA THERAPY 0 FAMILY BALB[place] R TQS 1/> CHIROPRAC REGIONS TIC EACH 15 MINUTES APPL 01194 XIANG LEIVA, MODALITY 0 FAMILY BALBINA R 1/> AREAS CHIROPRAC TRACTION TIC MECHANICA L THERAPEUT 71626 XIANG ABBIE, IC PX 1/> 0 FAMILY BALB[place] R AREAS CHIROPRAC EACH 15 TIC MIN EXERCISES CHIROPRAC 02184 XIANG LEIVA, TIC 0 FAMILY [place] R MANIPULAT CHIROPRAC JÚNIOR TX TIC SPINAL 1-2 REGIONS CHIROPRAC 80243 XIANG ABBIE, TIC 0 FAMILY [place] R MANIPLTV CHIROPRAC TX TIC EXTRASPIN AL 1/> REGION ROM 96725 LYLEMAURISIO LEIVA, LYDIA&REPR 0 FAMILY [place] R T EA XTR CHIROPRAC EX TIC HAND/EA TRNK SCTJ SPI STRAPPING 61153 LYLEMAURISIO LEIVA, THORAX 0 FAMILY BAL[place] R CHIROPRAC TIC CHIROPRAC 34362 XIANG LEIVA, TIC 0 FAMILY [place] R MANIPLTV CHIROPRAC TX TIC EXTRASPIN AL 1/> REGION STRAPPING 10733 XIANG LEIVA, THORAX 0 FAMILY BALB[place] R CHIROPRAC TIC THERAPEUT 44012 XIANG LEIVA, IC PX 1/> 0 FAMILY BALB[place] R AREAS CHIROPRAC EACH 15 TIC MIN EXERCISES APPL 04218 XIANG LEIVA, MODALITY 0 FAMILY BALBINA R 1/> AREAS CHIROPRAC TRACTION TIC MECHANICA L MANUAL 24284 XIANG LEIVA, THERAPY 0 FAMILY BALBINA R TQS 1/> CHIROPRAC REGIONS TIC EACH 15 MINUTES CHIROPRAC 14256 XIANG LEIVA, TIC 0 FAMILY [place] R MANIPULAT CHIROPRAC JÚNIOR TX TIC SPINAL 3-4 REGIONS MANUAL 64082 XIANG LEIVA, THERAPY 0 FAMILY BALBINA R TQS 1/> CHIROPRAC REGIONS TIC EACH 15 MINUTES CHIROPRAC 43456 XIANG LEIVA, TIC 0 FAMILY [place] R MANIPULAT CHIROPRAC JÚNIOR TX TIC SPINAL 1-2 REGIONS APPL 95894 XIANG LEIVA, MODALITY 0 FAMILY BALBINA R 1/> AREAS CHIROPRAC ELEC TIC STIMJ UNATTENDE D APPL 39473 XIANG LEIVA, MODALITY 0 FAMILY BALBINA R 1/> AREAS CHIROPRAC TRACTION TIC MECHANICA L THERAPEUT 88310 XIANG LEIVA, IC PX 1/> 0 FAMILY BALB[place] R AREAS CHIROPRAC EACH 15 TIC MIN EXERCISES CHIROPRAC 24930 XIANG LEIVA, TIC 0 FAMILY [place] R MANIPLTV CHIROPRAC TX TIC EXTRASPIN AL 1/> REGION RADEX 60558 XIANG LEIVA, SPINE 0 FAMILY [place] R CERVICAL CHIROPRAC 2 OR 3 TIC VIEWS RADEX 40104 XIANG LEIVA, SPINE 0 FAMILY BALB[place] R LUMBOSACR CHIROPRAC AL 2/3 TIC VIEWS CHIROPRAC 04346 XIANG LEIVA, TIC 0 FAMILY [place] R MANIPLTV CHIROPRAC TX TIC EXTRASPIN AL 1/> REGION THERAPEUT 99096 XIANG LEIVA, IC PX 1/> 0 FAMILY [place] R AREAS CHIROPRAC EACH 15 TIC MIN EXERCISES APPL 59362 LYLELATOYA LEIVA, MODALITY 0 FAMILY BALB[place] R 1/> AREAS CHIROPRAC ELEC TIC STIMJ UNATTENDE D SELF-CARE 66713 BERLINLATOYA LEIVA, /HOME 0 FAMILY BAL[place] R MGMT CHIROPRAC TRAINING TIC EACH 15 MINUTES CHIROPRAC 49532 XIANG LEIVA, TIC 0 FAMILY [place] R MANIPULAT CHIROPRAC JÚNIOR TX TIC SPINAL 3-4 REGIONS STRAPPING 35060 BRIDGEWATERMAURISIO LEIVA, THORAX 0 FAMILY BALB[place] R CHIROPRAC TIC RADIOLOGI 41216 [place] Hank JACKSON EXAM 9 MEDICAL [place] CHEST 2 IMAGING VIEWS ASSOCIATE FRONTAL&L S ATERAL INITIAL 09949 [facility] SANTIAG[facility] ESPINAL 9 PRACTICE ROSMERY [place] ON ASSOCIATE CARE/DAY S OF 30 [place] FABRICE , [facility] RADIOLOGI 29814 YIMI GELLER C EXAM 9 [facility] CHEST 2 INC INC VIEWS FRONTAL&L ATERAL IAADI 12534 [facility] GELLER INFLUENZA 9 [facility] B VIRUS INC INC IAADI 83110 [facility] GELLER INFFLUENZ 9 [facility] A A VIRUS INC INC RADIOLOGI 30415 YIMI GELLER C EXAM 9 [facility] CHEST 2 INC INC VIEWS FRONTAL&L ATERAL FRAMES V2020 RUBEN LINDA, PURCHASES 9 VISION KIT Goldsmith OPHTH 07712 RUBEN LINDA MEDICAL 9 VISION KIT Goldsmith XM&EVAL COMPRE NEW PT 1/> VST FITTING 16004 RUBEN LINDA, SPECTACLE 9 VISION KIT Goldsmith S XCPT APHAKIA MONOFOCAL SPHERE V2100 RUBEN LINDA SINGLE 9 VISION KIT Goldsmith VISION PLANO +/- 4.00 PER LENS RADEX 77007 [place] DEVANTE, ANKLE 9 MEDICAL YASMIN COMPLETE IMAGING MINIMUM 3 ASSOCIATE VIEWS S RADEX 31551 [facility] GE[facility] FOOT 9 [facility] COMPLETE INC INC MINIMUM 3 VIEWS 3D 10872 ERICKSON RENETTA, RENDERING 8 MEDICAL [place] IMAGING W/INTERP& [place]OCI[place] [address] [facility] GE[facility] MAXILLOFA 8 [facility] CIAL W/O INC INC CONTRAST MATERIAL 3D 35485 [facility] GELLER RENDERING 8 [facility] W/INTERP INC INC & [place] [address] ERICKSON RENETTA, HEAD/BRAI 8 MEDICAL [place] P N W/O IMAGING CONTRAST ASSOCIATE MATERIAL S Encounters Encounter Start End Date Code Location Performer Type Date OFFICE 39929 MARLENE REDDYPATIEN 0 0 MERCEDES MERCEDES T VISIT 15 MINUTES OFFICE 17003 MARLENE REDDYPATIEN 0 0 MERCEDES MERCEDES T VISIT 15 MINUTES [facility]OSPITAL [facility] - 0 0 [facility] OUTPATIEN INC T OFFICE 97224 [place] DANIEL LEIVA 0 0 FAMILY BALBINA R T NEW 20 CHIROPRAC MINUTES [facility] - 9 9 [facility] OUTPATIEN INC [facility] - 9 9 [facility] EMERGENCY 96501 ERNESTINA JOHNSON DEPT 9 9 EMERGENCY , TOMY VISIT SERVICES A HIGH SEVERITY& ASSOCIATE THREAT S FUN EMERGENCY 77998 YIMI 9 9 [facility] DEPARTMEN INC T VISIT MODERATE SEVERITY EMERGENCY 16487 ERNESTINA SLATER, 9 9 EMERGENCY [facility] DEPARTMEN SERVICES O T VISIT HIGH/URGE ASSOCIATE NT S SEVERITY HOSPITAL [facility] - 9 9 [facility] OUTPATIEN INC T OFFICE 79337 MARLENE ROSARIO OUTPATIEN 9 9 MERCEDES A MERCEDES A T VISIT 15 MINUTES OFFICE 77566 MARLENE ROSARIO OUTPATIEN 9 9 MERCEDES A MERCEDES A T VISIT 15 MINUTES OFFICE 13161 MARLENE ROSARIO OUTPATIEN 9 9 MERCEDES A MERCEDES A T VISIT 15 MINUTES OFFICE 15683 MARLENE ROSARIO OUTPATIEN 9 9 MERCEDES A MERCEDES A T VISIT 15 MINUTES [facility]OSP[facility] - 9 9 [facility] 35003 MARLENE ROSARIO OUTPATIEN 9 9 MERCEDES A MERCEDES A T VISIT 15 MINUTES EMERGENCY 18396 ANDRES BANGURA, 9 9 [facility] T VISIT ON MODERATE SEVERITY HOSPITAL [facility] - 9 9 [facility] T EMERGENC[facility] 68197 YIMI 9 9 [facility] LOW/MODER SEVERITY OFFICE 61114 MARLENE ROSARIO OUTPATIEN 8 8 MERCEDES A MERCEDES A T VISIT 15 MINUTES OFFICE 36627 MARLENE ROSARIO OUTPATIEN 8 8 MERCEDES A MERCEDES A T VISIT 15 MINUTES OFFICE 31432 MARLENE ROSARIO OUTPATIEN 8 8 MERCEDES A MERCEDES A T VISIT 15 MINUTES OFFICE 42295 MARLENE ROSARIO OUTPATIEN 8 8 MERCEDES A MERCEDES A T VISIT 15 MINUTES EMERGENCY 55263 YIMI 8 8 [facility] LOW/MODER SEVERITY [facility]OSPITAL [facility] - 8 8 [facility] OUTPATIEN INC T EMERGENCY 69534 YIMI 8 8 [facility]/MODER SEVERITY [facility] - 8 8 [facility] OUTPATIEN INC T OFFICE 37135 MARLENE ROSARIO OUTPATIEN 7 7 MERCEDES Zimmer T VISIT 15 MINUTES OFFICE 02266 MARLENE ROSARIO OUTPATIEN 7 7 MERCEDES Zimmer T VISIT 15 MINUTES
--- OUTSIDE RECORDS SUMMARY | 2016-08-26 09:43 | External Medical Summary Rpt ---
Author Author , MAYNOR MCGUIRE Address Unknown Phone [email or web address] Care Team Providers Care Orthopaedic Physician Assistant Name Role Phone ORSMERY ESPINAL, Unavailable Unavailable ROSMERY ESPINAL WILLIAM A, Unavailable Unavailable [facility], Unavailable [facility] DEVANTE DIPIKA, Unavailable Unavailable DEVANTE DIPIKA YASMIN LOW, Unavailable Unavailable DEVANTE, FRED GARCIA, Unavailable Unavailable FRED BANGURA RITA R, Unavailable Unavailable BALB[facility] LEIVA [facility], [facility] Unavailable [facility], [facility] CHAPARRO JACKSON, Unavailable Unavailable CHAPARRO JACKSON NICHOLS Unavailable Unavailable MARLENE SIMS Unavailable Unavailable MERCEDES MONTGOMERY, Unavailable Unavailable MERCEDES ROSARIO [id number], Unavailable Unavailable [id number] KIT LINDA, Unavailable Unavailable KIT LINDA BABATUNDE O, Unavailable Unavailable NEERAJ SLATER Purpose Continuity of Care Document - 10-23-2006 through 2016 Problems Code Diagnosis DOS Provider Status 89982 PAIN IN 01-17-2010 MARLENE LONG JOINT, HAND 3530 BRACHIAL 07-06-2009 [place] [facility] LESIONS CHIROPRACTI C 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 7232 CERVICOCRAN [facility] SY[facility] CHIR[facility] C 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 C 7398 NONALLOPATH 07-06-2009 [place] IC LESION FAMILY OF RIB CAGE CHIROPRACTI NEC C 486 PNEUMONIA, 12-03-2008 [facility]NSPECIFIED [facility] 4019 UNSPECIFIED 11-26-2008 [facility] 69299 HYPOXEMIA 11-26-2008 [facility] 4660 ACUTE 11-24-2008 [facility] 490 BRONCHITIS 11-24-2008 [facility] NOT EMERGENCY SPECIFIED SERVICES ACUTE OR ASSOCIATES CHRONIC 7862 COUGH 11-24-2008 [facility] 6926 CONTACT 08-06-2008 MARLENE DERMATITIS& MERCEDES Zimmer OTHER ECZEMA DUE TO PLANTS 3670 HYPERMETROP 04-23-2008 RUBEN IA VISION 4659 ACUTE URIS 04-19-2008 GEE ROSARIO A UNSPECIFIED SITE 03747 UNSPECIFIED 02-24-2008 [facility] S[facility] OF Akita SPRAIN AND STRAIN E8490 PLACE OF 02-24-2008 [place] OCCURRENCE, [facility] E9278 OTH 02-24-2008 [place] OVEREXERT&S MEDICAL TRENUOUS&RE IMAGING PETITIVE ASSOCIATES MVMNTS/LOAD S 5589 OTH&UNSPEC 01-16-2008 ISRRAEL ROSARIOFECTMARY Zimmer [facility] ITIS&COLITI S 7242 LUMBAGO 12-16-2007 MERCEDES ROSARIO 11276 CHEST PAIN 09-27-2007 MARLENE UNSPECIFIED MERCEDES Zimmer 4619 ACUTE 07-01-2007 [facility] SINUSITIS, [facility] UNSPECIFIED INC 7840 HEADACHE 07-01-2007 [facility] 4730 CHRONIC 10-23-2006 MARLENE MAXILLARY MERCEDES Zimmer SINUSITIS Medications Na ND Rx Da Fi Fi Am Da Di Ph RX Ph St me C No te ll ll ou ys ag ar # ys at rm s nt no ma ic us Or Da si cy ia de te s n re d CL 00 10 11 00 14 7 RI 80 OLY Ac AR 09 -1 -0 .0 TE 45 CO ti IT 37 6- 5- 00 82 OK ve HR 15 20 20 AI OM 80 09 09 D JE YC 6 PH SS IN AR IC M A 50 #3 D 0 93 MG 8 TA BL ET 59 10 11 00 8. 16 RI 80 OLY Ac 31 -1 -0 50 TE 45 CO ti 00 6- 5- 0 83 OK ve 57 20 20 AI 92 09 09 D JE 0 PH SS AR IC M A #3 D 93 8 SC 68 10 10 00 12 4 CL 20 SO Ac OM 38 -1 -2 .0 IN 26 KA ti ET 20 4- 2- 00 IC 88 N ve FARAH 04 20 20 BA ZI 10 09 09 PH BA NE 1 AR TU MA ND 25 CY E O MG TA BL ET 60 10 10 00 12 4 RI 80 NI Ac 25 -1 -2 0. TE 37 CH ti 80 2- 2- 00 53 OL ve 23 20 20 0 AI S 91 09 09 D LORE 6 PH E AR A M #3 93 8 ME 00 10 10 00 50 12 [...] #3 93 CA 8 PS UL E HY 00 06 07 00 28 8 [...] 09 D LORE TA 1 PH E DC AR A N- M CA #3 FF 93 8 50 -3 25 -4 0 BU 00 11 12 00 36 3 RI 75 NI Ac TA 60 -2 -0 .0 TE 98 CH ti LB 32 6- 4- 00 84 OL ve -A 54 20 20 AI S CE 42 08 08 D LORE TA 1 PH E DC AR A N- M CA #3 FF [...] 08 D LORE TA 1 PH E DC AR A N- M CA #3 FF [...] 08 D LORE TA 1 PH E DC AR A N- M CA #3 FF 93 8 50 -3 25 -4 0 BU 00 07 08 00 36 4 RI 74 NI Ac TA 60 -2 -1 .0 TE 30 CH ti LB 32 8- 4- 00 48 OL ve -A 54 20 20 AI S CE 42 08 08 D LORE TA 1 PH E DC AR A N- M CA #3 FF 93 8 50 -3 25 -4 0 BU 00 06 07 00 36 4 RI 73 NI Ac TA 60 -2 -0 .0 TE 81 CH ti LB 32 0- 3- 00 50 OL ve -A 54 20 20 AI S CE 42 08 08 D LORE TA 1 PH E DC AR A N- M CA #3 FF 93 8 50 -3 25 -4 0 BU 00 05 06 00 36 4 RI 73 NI Ac TA 60 -2 -0 .0 TE 40 CH ti LB 32 0- 5- 00 08 OL ve -A 54 20 20 AI S CE 42 08 08 D LORE TA 1 PH E DC AR A N- M CA #3 FF [...] M #3 93 8 CE 00 05 05 00 30 10 RI 73 No Ac PH 09 -0 -2 .0 TE 20 t ti AL 33 6- 2- 00 47 Av ve EX 14 20 20 AI ai IN 70 08 08 D la 1 PH bl 50 AR e 0 M MG #3 93 CA 8 PS UL E 60 02 04 00 12 4 RI [...] Procedure DOS Code Location Performer Comment RADEX 88171 [place] DEVANTE HAND 0 MEDICAL DIPIKA MINIMUM 3 IMAGING VIEWS ASS STRAPPING 01903 [place] LEIVA, THORAX 0 FAMILY BAL[place] R CHIROPRAC TIC CHIROPRAC 09188 XIANG LEIVA, TIC 0 FAMILY [place] R MANIPULAT CHIROPRAC JÚNIOR TX TIC SPINAL 3-4 REGIONS CHIROPRAC 17436 XIANG LEIVA, TIC 0 FAMILY [place] R MANIPLTV CHIROPRAC TX TIC EXTRASPIN AL 1/> REGION APPL 43595 XIANG LEIVA, MODALITY 0 FAMILY BALBINA R 1/> AREAS CHIROPRAC TRACTION TIC MECHANICA L APPL 28290 XIANG LEIVA, MODALITY 0 FAMILY BALBINA R 1/> AREAS CHIROPRAC ELEC TIC STIMJ UNATTENDE D THERAPEUT 14183 XIANG LEIVA, ACTVITY 0 FAMILY [place] R DIRECT PT CHIROPRAC CONTACT TIC EACH 15 MIN THERAPEUT 00499 XIANG LEIVA, IC PX 1/> 0 FAMILY BALBINA R AREAS CHIROPRAC EACH 15 TIC MIN EXERCISES THERAPEUT 91903 XIANG LEIVA, IC PX 1/> 0 FAMILY BALB[place] R AREAS CHIROPRAC EACH 15 TIC MIN EXERCISES APPL 84324 XIANG LEIVA, MODALITY 0 FAMILY BALBINA R 1/> AREAS CHIROPRAC ELEC TIC STIMJ UNATTENDE D APPL 08072 XIANG LEIVA, MODALITY 0 FAMILY BALBINA R 1/> AREAS CHIROPRAC TRACTION TIC MECHANICA L CHIROPRAC 95505 XIANG LEIVA, TIC 0 FAMILY BALB[place] R MANIPULAT CHIROPRAC JÚNIOR TX TIC SPINAL 3-4 REGIONS CHIROPRAC 54057 XIANG LEIVA, TIC 0 FAMILY [place] R MANIPLTV CHIROPRAC TX TIC EXTRASPIN AL 1/> REGION THERAPEUT 00231 XIANG LEIVA, ACTVITY 0 FAMILY BAL[place] R DIRECT PT CHIROPRAC CONTACT TIC EACH 15 MIN STRAPPING 65391 XIANG LEIVA, THORAX 0 FAMILY [place] R CHIROPRAC TIC CHIROPRAC 86921 XIANG LEIVA, TIC 0 FAMILY [place] R MANIPULAT CHIROPRAC JÚNIOR TX TIC SPINAL 3-4 REGIONS APPL 81135 XIANG LEIVA, MODALITY 0 FAMILY BALBINA R 1/> AREAS CHIROPRAC TRACTION TIC MECHANICA L APPL 91112 XIANG LEIVA, MODALITY 0 FAMILY BALBINA R 1/> AREAS CHIROPRAC ELEC TIC STIMJ UNATTENDE D THERAPEUT 42985 XIANG LEIVA, ACTVITY 0 FAMILY [place] R DIRECT PT CHIROPRAC CONTACT TIC EACH 15 MIN CHIROPRAC 82673 XIANG LEIVA, TIC 0 FAMILY [place] R MANIPLTV CHIROPRAC TX TIC EXTRASPIN AL 1/> REGION THERAPEUT 26816 XIANG LEIVA, IC PX 1/> 0 FAMILY BALBINA R AREAS CHIROPRAC EACH 15 TIC MIN EXERCISES CHIROPRAC 59620 XIANG LEIVA, TIC 0 FAMILY [place] R MANIPULAT CHIROPRAC JÚNIOR TX TIC SPINAL 1-2 REGIONS CHIROPRAC 55750 XIANG LEIVA, TIC 0 FAMILY [place] R MANIPLTV CHIROPRAC TX TIC EXTRASPIN AL 1/> REGION APPL 58186 XIANG LEIVA, MODALITY 0 FAMILY BALBINA R 1/> AREAS CHIROPRAC ELEC TIC STIMJ UNATTENDE D MANUAL 41539 XIANG LEIVA, THERAPY 0 FAMILY BALBINA R TQS 1/> CHIROPRAC REGIONS TIC EACH 15 MINUTES THERAPEUT 56366 XIANG LEIVA, IC PX 1/> 0 FAMILY BALB[place] R AREAS CHIROPRAC EACH 15 TIC MIN EXERCISES CHIROPRAC 71320 XIANG LEIVA, TIC 0 FAMILY BAL[place] R MANIPULAT CHIROPRAC JÚNIOR TX TIC SPINAL 3-4 REGIONS APPL 18790 XIANG LEIVA, MODALITY 0 FAMILY BALBINA R 1/> AREAS CHIROPRAC ELEC TIC STIMJ UNATTENDE D APPL 40942 XIANG LEIVA, MODALITY 0 FAMILY BALBINA R 1/> AREAS CHIROPRAC TRACTION TIC MECHANICA L CHIROPRAC 62067 XIANG LEIVA, TIC 0 FAMILY BAL[place] R MANIPLTV CHIROPRAC TX TIC EXTRASPIN AL 1/> REGION THERAPEUT 11448 XIANG LEIVA, IC PX 1/> 0 FAMILY BALBINA R AREAS CHIROPRAC EACH 15 TIC MIN EXERCISES CHIROPRAC 72367 LYLEMAURISIO LEIVA, TIC 0 FAMILY BALB[place] R MANIPLTV CHIROPRAC TX TIC EXTRASPIN AL 1/> REGION CHIROPRAC 14933 XIANG ABBIE, TIC 0 FAMILY BALB[place] R MANIPULAT CHIROPRAC JÚNIOR TX TIC SPINAL 1-2 REGIONS APPL 58459 LYLEMAURISIO LEIVA, MODALITY 0 FAMILY BALBINA R 1/> AREAS CHIROPRAC TRACTION TIC MECHANICA L APPL 05716 LYLEMarkLATOYA ABBIE, MODALITY 0 FAMILY BALBINA R 1/> AREAS CHIROPRAC ELEC TIC STIMJ UNATTENDE D MANUAL 71386 XIANG LEIVA, THERAPY 0 FAMILY BALBINA R TQS 1/> CHIROPRAC REGIONS TIC EACH 15 MINUTES THERAPEUT 41394 XIANG LEIVA, IC PX 1/> 0 FAMILY BALBINA R AREAS CHIROPRAC EACH 15 TIC MIN EXERCISES STRAPPING 83435 XIANG LEIVA, THORAX 0 FAMILY BALB[place] R CHIROPRAC TIC STRAPPING 88113 XIANG LEIVA, THORAX 0 FAMILY BAL[place] R CHIROPRAC TIC ROM 87831 XIANG LEIVA, LYDIA&REPR 0 FAMILY BAL[place] R T EA XTR CHIROPRAC EX TIC HAND/EA TRNK SCTJ SPI THERAPEUT 22810 XIANG LEIVA, IC PX 1/> 0 FAMILY BALBINA R AREAS CHIROPRAC EACH 15 TIC MIN EXERCISES MANUAL 61451 XIANG LEIVA, THERAPY 0 FAMILY BALBINA R TQS 1/> CHIROPRAC REGIONS TIC EACH 15 MINUTES APPL 58287 XIANG LEIVA, MODALITY 0 FAMILY BALBINA R 1/> AREAS CHIROPRAC TRACTION TIC MECHANICA L CHIROPRAC 44574 XIANG LEIVA, TIC 0 FAMILY BALB[place] R MANIPLTV CHIROPRAC TX TIC EXTRASPIN AL 1/> REGION CHIROPRAC 20389 XIANG LEIVA, TIC 0 FAMILY BALB[place] R MANIPULAT CHIROPRAC JÚNIOR TX TIC SPINAL 1-2 REGIONS CHIROPRAC 57446 XIANG LEIVA, TIC 0 FAMILY BALB[place] R MANIPLTV CHIROPRAC TX TIC EXTRASPIN AL 1/> REGION APPL 81179 XIANG LEIVA, MODALITY 0 FAMILY BALBINA R 1/> AREAS CHIROPRAC TRACTION TIC MECHANICA L MANUAL 95150 LYLEMAURISIO LEIVA, THERAPY 0 FAMILY BALBINA R TQS 1/> CHIROPRAC REGIONS TIC EACH 15 MINUTES CHIROPRAC 26270 XIANG LEIVA, TIC 0 FAMILY BALB[place] R MANIPULAT CHIROPRAC JÚNIOR TX TIC SPINAL 3-4 REGIONS THERAPEUT 00196 LYLEMAURISIO LEIVA, IC PX 1/> 0 FAMILY BALBINA R AREAS CHIROPRAC EACH 15 TIC MIN EXERCISES STRAPPING 90809 XIANG LEIVA, THORAX 0 FAMILY BALB[place] R CHIROPRAC TIC THERAPEUT 60826 LYLEMUARISIO LEIVA, IC PX 1/> 0 FAMILY BALB[place] R AREAS CHIROPRAC EACH 15 TIC MIN EXERCISES MANUAL 55313 XIANG ABBIE, THERAPY 0 FAMILY BALBINA R TQS 1/> CHIROPRAC REGIONS TIC EACH 15 MINUTES APPL 75545 XIANG LEIVA, MODALITY 0 FAMILY BALBINA R 1/> AREAS CHIROPRAC TRACTION TIC MECHANICA L APPL 31540 XIANG LEIVA, MODALITY 0 FAMILY BALBINA R 1/> AREAS CHIROPRAC ELEC TIC STIMJ UNATTENDE D CHIROPRAC 41546 XIANG LEIVA, TIC 0 FAMILY BALB[place] R MANIPLTV CHIROPRAC TX TIC EXTRASPIN AL 1/> REGION CHIROPRAC 34002 XIANG LEIVA, TIC 0 FAMILY BALB[place] R MANIPULAT CHIROPRAC JÚNIOR TX TIC SPINAL 1-2 REGIONS APPL 76293 XIANG ABBIE, MODALITY 0 FAMILY BALBINA R 1/> AREAS CHIROPRAC ELEC TIC STIMJ UNATTENDE D SELF-CARE 08500 LYLEMAURISIO LEIVA, /HOME 0 FAMILY BALB[place] R MGMT CHIROPRAC TRAINING TIC EACH 15 MINUTES CHIROPRAC 07089 MAYSLATOYA LEIVA, TIC 0 FAMILY BAL[place] R MANIPULAT CHIROPRAC JÚNIOR TX TIC SPINAL 3-4 REGIONS CHIROPRAC 19754 BEULAHLATOYA LEIVA, TIC 0 FAMILY BALB[place] R MANIPLTV CHIROPRAC TX TIC EXTRASPIN AL 1/> REGION RADEX 01751 BEULAHLATOYA LEIVA, SPINE 0 FAMILY BALBINA R LUMBOSACR CHIROPRAC AL 2/3 TIC VIEWS STRAPPING 69877 [place] ABBIE THORAX 0 FAMILY BALBINA R CHIROPRAC TIC RADEX 70914 BEULAHLATOYA LEIVA SPINE 0 FAMILY [place] R CERVICAL CHIROPRAC 2 OR 3 TIC VIEWS THERAPEUT 20447 BEULAHLATOYA LEIVA IC PX 1/> 0 FAMILY BALBINA R AREAS CHIROPRAC EACH 15 TIC MIN EXERCISES RADIOLOGI 88874 [facility] GELLER C EXAM 9 [facility]OS[facility] CHEST 2 INC INC VIEWS FRONTAL&L ATERAL INITIAL 88118 [facility] ESPIANL 9 PRACTICE ROSMERY [place] ON ASSOCIATE CARE/DAY S OF 30 [facility] , [facility] RADIOLOGI 75961 [facility] GELLER C EXAM 9 MEM HOS[facility] CHEST 2 INC INC VIEWS FRONTAL&L ATERAL IAADI 10238 [facility] GELLER INFLUENZA 9 [facility] B VIRUS INC INC IAADI 37268 [facility] GELLER INFFLUENZ 9 [facility] A A VIRUS INC INC RADIOLOGI 01162 [place] Hank LOW EXAM 9 MEDICAL [place] CHEST 2 IMAGING VIEWS ASSOCIATE FRONTAL&L S ATERAL SPHERE V2100 RUBEN LINDA, SINGLE 9 VISION KIT M VISION PLANO +/- 4.00 PER LENS FITTING 15177 RUBEN LINDA, SPECTACLE 9 VISION KIT M S XCPT APHAKIA MONOFOCAL FRAMES V2020 RUBEN LINDA, PURCHASES 9 VISION KIT M OPHTH 00666 RUBEN LINDA MEDICAL 9 VISION KIT M XM&EVAL COMPRE NEW PT 1/> VST RADEX 36367 [facility] GELLER ANKLE 9 [facility] COMPLETE INC INC MINIMUM 3 VIEWS RADEX 07274 ERICKSON DEVANTE, FOOT 9 MEDICAL YASMIN COMPLETE IMAGING MINIMUM [address] [place] [address] ERICKSON RENETTA, MAXILLOFA 8 MEDICAL CHAPARRO P CIAL W/[place] [address] [facility] GELLER HEAD/BRAI 8 [facility] N W/O INC INC CONTRAST MATERIAL 3D 78584 [facility] GELLER RENDERING 8 [facility] W/INTERP INC INC & POSTPROCE SS SUPERVISI ON 3D 67129 [facility] GELLER RENDERING 8 [facility] INC INC W/INTERP& POSTPROC DIFF WORK STATION Encounters Encounter Start End Date Code Location Performer Type Date OFFICE 59140 [facility] REDDYPATIEN 0 0 MERCEDES MERCEDES T VISIT 15 MINUTES OFFICE 06169 MARLENE REDDYPATIEN 0 0 MERCEDES MERCEDES T VISIT 15 MINUTES HOSPITAL [facility] - 0 0 [facility] OUTPATIEN INC T OFFICE 64894 BEULAHDANIEL SEALS 0 0 FAMILY BALBINA R T NEW 20 CHIROPRAC MINUTES [facility] YIMI - 9 9 [facility] OUTPATIEN INC T EMERGENCY 25797 ERNESTINA JOHNSON DEPT 9 9 EMERGENCY TOMY VISIT SERVICES A HIGH SEVERITY& ASSOCIATE THREAT S [facility] SAMANTHA - 9 9 [facility] EMERGENCY 29631 ERNESTINA SLATER, 9 9 EMERGENCY NEERAJ DEPARTMEN SERVICES O T VISIT HIGH/URGE ASSOCIATE NT S SEVERITY EMERGENCY 35322 [facility]I 9 9 [facility] DEPARTMEN INC T VISIT MODERATE SEVERITY HOSPITAL [facility] - 9 9 [facility] OUTPATIEN INC T OFFICE 27080 MARLENE ROSARIO OUTPATIEN 9 9 MERCEDES A MERCEDES A T VISIT 15 MINUTES OFFICE 36782 MARLENE ROSARIO OUTPATIEN 9 9 MERCEDES A MERCEDES A T VISIT 15 MINUTES OFFICE 14878 MARLENE ROSARIO OUTPATIEN 9 9 MERCEDES A MERCEDES A T VISIT 15 MINUTES OFFICE 91134 MARLENE ROSARIO OUTPATIEN 9 9 MERCEDES A MERCEDES A T VISIT 15 MINUTES HOSPITAL [facility] - 9 9 [facility] 92187 MARLENE ROSARIO OUTPATIEN 9 9 MERCEDES A MERCEDES A T VISIT 15 MINUTES EMERGENCY 02775 [facility] 9 9 [facility] INC T VISIT LOW/MODER SEVERITY HOSPITAL [facility] - 9 9 [facility] T EMERGENCY 56995 ANDRES BANGURA, 9 9 [facility] T VISIT ON MODERATE SEVERITY OFFICE 68750 MARLENE ROSARIO OUTPATIEN 8 8 MERCEDES A MERCEDES A T VISIT 15 MINUTES OFFICE 10224 MARLENE ROSARIO OUTPATIEN 8 8 MERCEDES A MERCEDES A T VISIT 15 MINUTES OFFICE 09496 MARLENE ROSARIO OUTPATIEN 8 8 MERCEDES A MERCEDES A T VISIT 15 MINUTES OFFICE 97552 MARLENE ROSARIO OUTPATIEN 8 8 MERCEDES A MERCEDES A T VISIT 15 MINUTES EMERGENCY 33798 [facility] 8 8 [facility] T VISIT LOW/MODER SEVERITY HOSPITAL [facility] - 8 8 [facility] T HOSP[facility] - 8 8 [facility] T EM[facility] 82953 [facility] 8 8 [facility] T VISIT LOW/MODER SEVERITY OFFICE 31318 MARLENE ROSARIO OUTPATIEN 7 7 MERCEDES Zimmer T VISIT 15 MINUTES OFFICE 69638 MARLENE ROSARIO OUTPATIEN 7 7 MERCEDES Zimmer T VISIT 15 MINUTES
--- OUTSIDE RECORDS SUMMARY | 2016-08-26 09:43 | External Medical Summary Rpt ---
Author Author , MAYNOR MCGUIRE Address Unknown Phone [email or web address] Care Team Providers Care Plant Nursery Worker Name Role Phone ROSMERY ESPINAL, Unavailable Unavailable ROSMERY ESPINAL WILLIAM A, Unavailable Unavailable [facility], Un[facility] DEVANTE DIPIKA, Unavailable Unavailable DEVANTE DIPIKA YASMIN LOW, Unavailable Unavailable DEVANTE, FRED GARCIA, Unavailable Unavailable FRED BANGURA RITA R, Unavailable Unavailable [facility], [facility] Unavailable [facility], [facility] CHAPARRO JACKSON, Unavailable Unavailable CHAPARRO JACKSON NICHOLS Unavailable Unavailable MARLENE SIMS Unavailable Unavailable MERCEDES MONTGOMERY, Unavailable Unavailable MERCEDES ROSARIO [id number], Unavailable Unavailable [id number] KIT LINDA, Unavailable Unavailable KIT LINDA BABATUNDE O, Unavailable Unavailable NEERAJ SLATER Purpose Continuity of Care Document - 10-23-2006 through 2016 Problems Code Diagnosis DOS Provider Status 82729 PAIN IN 01-17-2010 MARLENE LONG JOINT, HAND 3530 BRACHIAL 07-06-2009 [facility]ILY LESIONS CHIROPRACTI C 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 OF PELVIS CHIROPRACTI C 7398 NONALLOPATH 07-06-2009 [facility] IC LESION FAMILY OF RIB CAGE CHIROPRACTI NEC C 486 PNEUMONIA, 12-03-2008 [facility]NSPECIFIED [facility] 4019 UNSPECIFIED 11-26-2008 [facility] 24828 HYPOXEMIA 11-26-2008 [facility] 4660 ACUTE 11-24-2008 [facility] 490 BRONCHITIS 11-24-2008 [place] NOT EMERGENCY SPECIFIED SERVICES ACUTE OR ASSOCIATES CHRONIC 7862 COUGH 11-24-2008 [facility] 6926 CONTACT 08-06-2008 MARLENE DERMATITIS& MERCEDES Zimmer OTHER ECZEMA DUE TO PLANTS 3670 HYPERMETROP 04-23-2008 RUBEN IA VISION 4659 ACUTE URIS 04-19-2008 GEE ROSARIO A UNSPECIFIED SITE 39563 UNSPECIFIED 02-24-2008 [facility] SITE OF [place] SPRAIN AND STRAIN E8490 PLACE OF 02-24-2008 [place] OCCURRENCE, [facility] E9278 OTH 02-24-2008 [place] OVER[facility]ERT&[facility] MEDICAL TRENUOUS&RE IMAGING PETITIVE ASSOC[facility]ATES MVMNTS/LOAD S 5589 OTH&UNSPEC 01-16-2008 ISRRAEL ROSARIOFECTMARY Zimmer [facility] ITIS&COLITI S 7242 LUMBAGO 12-16-2007 MERCEDES ROSARIO 61786 CHEST PAIN 09-27-2007 MARLENE UNSPECIFIED MERCEDES Zimmer 4619 ACUTE 07-01-2007 [facility] SINUSITIS, [facility] UNSPECIFIED INC 7840 HEADACHE 07-01-2007 [facility] 4730 CHRONIC 10-23-2006 MARLENE [...] IC M A #3 D 93 8 PA 68 10 10 00 12 4 CL [...] 09 D LORE TA 1 PH E [place] AR A N- M CA #3 FF 93 8 50 -3 25 -4 0 BU 00 11 12 00 36 3 RI 75 NI Ac TA 60 -2 -0 .0 TE 98 CH ti LB 32 6- 4- 00 84 OL ve -A 54 20 20 AI S CE 42 08 08 D LORE TA 1 PH E [place] AR A N- M CA #3 FF [...] 08 D LORE TA 1 PH E [place] AR A N- M CA #3 FF [...] 08 D LORE TA 1 PH E [place] AR A N- M CA #3 FF 93 8 50 -3 25 -4 0 BU 00 07 08 00 36 4 RI 74 NI Ac TA 60 -2 -1 .0 TE 30 CH ti LB 32 8- 4- 00 48 OL ve -A 54 20 20 AI S CE 42 08 08 D LORE TA 1 PH E [place] AR A N- M CA #3 FF 93 8 50 -3 25 -4 0 BU 00 06 07 00 36 4 RI 73 NI Ac TA 60 -2 -0 .0 TE 81 CH ti LB 32 0- 3- 00 50 OL ve -A 54 20 20 AI S CE 42 08 08 D LORE TA 1 PH E [place] AR A N- M CA #3 FF 93 8 50 -3 25 -4 0 BU 00 05 06 00 36 4 RI 73 NI Ac TA 60 -2 -0 .0 TE 40 CH ti LB 32 0- 5- 00 08 OL ve -A 54 20 20 AI S CE 42 08 08 D LORE TA 1 PH E [place] AR A N- M CA #3 FF [...] Procedure DOS Code Location Performer Comment RADEX 16058 [place] DEVANTE HAND 0 MEDICAL DIPIKA MINIMUM 3 IMAGING VIEWS ASS STRAPPING 28897 [facility] LEIVA, THORAX 0 FAMILY [place] R CHIROPRAC TIC CHIROPRAC 61848 XIANG LEIVA, TIC 0 FAMILY [place] R MANIPULAT CHIROPRAC JÚNIOR TX TIC SPINAL 3-4 REGIONS CHIROPRAC 02070 XIANG LEIVA, TIC 0 FAMILY [place] R MANIPLTV CHIROPRAC TX TIC EXTRASPIN AL 1/> REGION APPL 70481 XIANG LEIVA, MODALITY 0 FAMILY BALB[place] R 1/> AREAS CHIROPRAC TRACTION TIC MECHANICA L APPL 86432 XIANG LEIVA, MODALITY 0 FAMILY BALB[place] R 1/> AREAS CHIROPRAC ELEC TIC STIMJ UNATTENDE D THERAPEUT 19180 XIANG LEIVA, ACTVITY 0 FAMILY [place] R DIRECT PT CHIROPRAC CONTACT TIC EACH 15 MIN THERAPEUT 69697 XIANG LEIVA, IC PX 1/> 0 FAMILY [place] R AREAS CHIROPRAC EACH 15 TIC MIN EXERCISES THERAPEUT 79293 XIANG LEIVA, IC PX 1/> 0 FAMILY [place] R AREAS CHIROPRAC EACH 15 TIC MIN EXERCISES APPL 32578 XIANG LEIVA, MODALITY 0 FAMILY BALB[place] R 1/> AREAS CHIROPRAC ELEC TIC STIMJ UNATTENDE D APPL 21253 XIANG LEIVA, MODALITY 0 FAMILY BALB[place] R 1/> AREAS CHIROPRAC TRACTION TIC MECHANICA L CHIROPRAC 29006 XIANG LEIVA, TIC 0 FAMILY [place] R MANIPULAT CHIROPRAC JÚNIOR TX TIC SPINAL 3-4 REGIONS CHIROPRAC 60318 XIANG LEIVA, TIC 0 FAMILY [place] R MANIPLTV CHIROPRAC TX TIC EXTRASPIN AL 1/> REGION THERAPEUT 61806 XIANG LEIVA, ACTVITY 0 FAMILY [place] R DIRECT PT CHIROPRAC CONTACT TIC EACH 15 MIN STRAPPING 69229 XIANG LEIVA, THORAX 0 FAMILY [place] R CHIROPRAC TIC CHIROPRAC 88808 XIANG LEIVA, TIC 0 FAMILY [place] R MANIPULAT CHIROPRAC JÚNIOR TX TIC SPINAL 3-4 REGIONS APPL 03049 XIANG LEIVA, MODALITY 0 FAMILY BALBINA R 1/> AREAS CHIROPRAC TRACTION TIC MECHANICA L APPL 96984 XIANG LEIVA, MODALITY 0 FAMILY BALB[place] R 1/> AREAS CHIROPRAC ELEC TIC STIMJ UNATTENDE D THERAPEUT 46098 XIANG LEIVA, ACTVITY 0 FAMILY [place] R DIRECT PT CHIROPRAC CONTACT TIC EACH 15 MIN CHIROPRAC 64658 XIANG LEIVA, TIC 0 FAMILY [place] R MANIPLTV CHIROPRAC TX TIC EXTRASPIN AL 1/> REGION THERAPEUT 00852 XIANG LEIVA, IC PX 1/> 0 FAMILY BAL[place] R AREAS CHIROPRAC EACH 15 TIC MIN EXERCISES CHIROPRAC 42045 XIANG LEIVA, TIC 0 FAMILY [place] R MANIPULAT CHIROPRAC JÚNIOR TX TIC SPINAL 1-2 REGIONS CHIROPRAC 01050 XIANG LEIVA, TIC 0 FAMILY [place] R MANIPLTV CHIROPRAC TX TIC EXTRASPIN AL 1/> REGION APPL 33299 XIANG LEIVA, MODALITY 0 FAMILY BALB[place] R 1/> AREAS CHIROPRAC ELEC TIC STIMJ UNATTENDE D MANUAL 74056 XIANG LEIVA, THERAPY 0 FAMILY BAL[place] R TQS 1/> CHIROPRAC REGIONS TIC EACH 15 MINUTES THERAPEUT 29939 XIANG LEIVA, IC PX 1/> 0 FAMILY [place] R AREAS CHIROPRAC EACH 15 TIC MIN EXERCISES CHIROPRAC 43591 XIANG LEIVA, TIC 0 FAMILY [place] R MANIPULAT CHIROPRAC JÚNIOR TX TIC SPINAL 3-4 REGIONS APPL 12875 XIANG LEIVA, MODALITY 0 FAMILY BALBINA R 1/> AREAS CHIROPRAC ELEC TIC STIMJ UNATTENDE D APPL 61874 XIANG LEIVA, MODALITY 0 FAMILY BALBINA R 1/> AREAS CHIROPRAC TRACTION TIC MECHANICA L CHIROPRAC 54788 XIANG LEIVA, TIC 0 FAMILY [place] R MANIPLTV CHIROPRAC TX TIC EXTRASPIN AL 1/> REGION THERAPEUT 73912 XIANG LEIVA, IC PX 1/> 0 FAMILY BALB[place] R AREAS CHIROPRAC EACH 15 TIC MIN EXERCISES CHIROPRAC 74857 LYLEMAURISIO LEIVA, TIC 0 FAMILY [place] R MANIPLTV CHIROPRAC TX TIC EXTRASPIN AL 1/> REGION CHIROPRAC 97350 XIANG ABBIE, TIC 0 FAMILY [place] R MANIPULAT CHIROPRAC JÚNIOR TX TIC SPINAL 1-2 REGIONS APPL 98242 LYLEMAURISIO LEIVA, MODALITY 0 FAMILY BALBINA R 1/> AREAS CHIROPRAC TRACTION TIC MECHANICA L APPL 36515 LYLEMarkLATOYA ABBIE, MODALITY 0 FAMILY BALBINA R 1/> AREAS CHIROPRAC ELEC TIC STIMJ UNATTENDE D MANUAL 71106 XIANG LEIVA, THERAPY 0 FAMILY BALB[place] R TQS 1/> CHIROPRAC REGIONS TIC EACH 15 MINUTES THERAPEUT 38971 XIANG LEIVA, IC PX 1/> 0 FAMILY BALB[place] R AREAS CHIROPRAC EACH 15 TIC MIN EXERCISES STRAPPING 47285 XIANG LEIVA, THORAX 0 FAMILY BAL[place] R CHIROPRAC TIC STRAPPING 62732 XIANG LEIVA, THORAX 0 FAMILY [place] R CHIROPRAC TIC ROM 30338 XIANG LEIVA, LYDIA&REPR 0 FAMILY [place] R T EA XTR CHIROPRAC EX TIC HAND/EA TRNK SCTJ SPI THERAPEUT 85321 XIANG LEIVA, IC PX 1/> 0 FAMILY BALBINA R AREAS CHIROPRAC EACH 15 TIC MIN EXERCISES MANUAL 67310 XIANG LEIVA, THERAPY 0 FAMILY BALBINA R TQS 1/> CHIROPRAC REGIONS TIC EACH 15 MINUTES APPL 68507 XIANG LEIVA, MODALITY 0 FAMILY BALBINA R 1/> AREAS CHIROPRAC TRACTION TIC MECHANICA L CHIROPRAC 87542 XIANG LEIVA, TIC 0 FAMILY [place] R MANIPLTV CHIROPRAC TX TIC EXTRASPIN AL 1/> REGION CHIROPRAC 52648 XIANG LEIVA, TIC 0 FAMILY [place] R MANIPULAT CHIROPRAC JÚNIOR TX TIC SPINAL 1-2 REGIONS CHIROPRAC 17784 XIANG LEIVA, TIC 0 FAMILY [place] R MANIPLTV CHIROPRAC TX TIC EXTRASPIN AL 1/> REGION APPL 86645 XIANG LEIVA, MODALITY 0 FAMILY BALBINA R 1/> AREAS CHIROPRAC TRACTION TIC MECHANICA L MANUAL 06485 LYLEMAURISIO LEIVA, THERAPY 0 FAMILY BALB[place] R TQS 1/> CHIROPRAC REGIONS TIC EACH 15 MINUTES CHIROPRAC 14758 XIANG LEIVA, TIC 0 FAMILY [place] R MANIPULAT CHIROPRAC JÚNIOR TX TIC SPINAL 3-4 REGIONS THERAPEUT 58332 LYLEMAURISIO LEIVA, IC PX 1/> 0 FAMILY BALB[place] R AREAS CHIROPRAC EACH 15 TIC MIN EXERCISES STRAPPING 74508 XIANG LEIVA, THORAX 0 FAMILY [place] R CHIROPRAC TIC THERAPEUT 22400 LYLEMAURISIO LEIVA, IC PX 1/> 0 FAMILY [place] R AREAS CHIROPRAC EACH 15 TIC MIN EXERCISES MANUAL 63374 XIANG ABBIE, THERAPY 0 FAMILY BALB[place] R TQS 1/> CHIROPRAC REGIONS TIC EACH 15 MINUTES APPL 84440 XIANG LEIVA, MODALITY 0 FAMILY BALBINA R 1/> AREAS CHIROPRAC TRACTION TIC MECHANICA L APPL 40056 XIANG LEIVA, MODALITY 0 FAMILY BALBINA R 1/> AREAS CHIROPRAC ELEC TIC STIMJ UNATTENDE D CHIROPRAC 73374 XIANG LEIVA, TIC 0 FAMILY [place] R MANIPLTV CHIROPRAC TX TIC EXTRASPIN AL 1/> REGION CHIROPRAC 76646 XIANG LEIVA, TIC 0 FAMILY [place] R MANIPULAT CHIROPRAC JÚNIOR TX TIC SPINAL 1-2 REGIONS APPL 86666 XIANG ABBIE, MODALITY 0 FAMILY BALBINA R 1/> AREAS CHIROPRAC ELEC TIC STIMJ UNATTENDE D SELF-CARE 62205 LYLEMAURISIO LEIVA, /HOME 0 FAMILY BAL[place] R MGMT CHIROPRAC TRAINING TIC EACH 15 MINUTES CHIROPRAC 44461 MAYSLATOYA LEIVA, TIC 0 FAMILY [place] R MANIPULAT CHIROPRAC JÚNIOR TX TIC SPINAL 3-4 REGIONS CHIROPRAC 34031 WINTERPORTLATOYA LEIVA, TIC 0 FAMILY BALB[place] R MANIPLTV CHIROPRAC TX TIC EXTRASPIN AL 1/> REGION RADEX 70655 WINTERPORTLATOYA LEIVA, SPINE 0 FAMILY BALB[place] R LUMBOSACR CHIROPRAC AL 2/3 TIC VIEWS STRAPPING 89755 [facility] ABBIE THORAX 0 FAMILY BALB[place] R CHIROPRAC TIC RADEX 78785 WINTERPORTLATOYA LEIVA SPINE 0 FAMILY [place] R CERVICAL CHIROPRAC 2 OR 3 TIC VIEWS THERAPEUT 57731 WINTERPORTLATOYA LEIVA IC PX 1/> 0 FAMILY BALBINA R AREAS CHIROPRAC EACH 15 TIC MIN EXERCISES RADIOLOGI 39933 [facility] GELLER C EXAM 9 [facility] CHEST 2 INC INC VIEWS FRONTAL&L ATERAL INITIAL 14124 [facility] SANTIAGO ESPINAL 9 PRACTICE ROSMERY [place] ON ASSOCIATE CARE/DAY S OF 30 [facility] RADIOLOGI 37109 [facility] GELLER C EXAM 9 [facility]OS[facility] CHEST 2 INC INC VIEWS FRONTAL&L ATERAL IAADI 80324 [facility] GELLER INFLUENZA 9 [facility] B VIRUS INC INC IAADI 62019 [facility] GELLER INFFLUENZ 9 [facility] A A VIRUS INC INC RADIOLOGI 83983 [place] Hank LOW EXAM [facility] CHEST 2 IMAGING VIEWS ASSOCIATE FRONTAL&L S ATERAL SPHERE V2100 RUBEN LINDA, SINGLE 9 VISION KIT M VISION PLANO +/- 4.00 PER LENS FITTING 54003 RUBEN LINDA, SPECTACLE 9 VISION KIT M S XCPT APHAKIA MONOFOCAL FRAMES V2020 RUBEN LINDA, PURCHASES 9 VISION KIT M OPHTH 83900 RUBEN LINDA MEDICAL 9 VISION KIT M XM&EVAL COMPRE NEW PT 1/> VST RADEX 65566 [facility] GELL[facility] ANKLE 9 [facility] COMPLETE INC INC MINIMUM 3 VIEWS RADEX 93366 ERICKSON DEVANTE, FOOT 9 MEDICAL YASMIN COMPLETE IMAGING MINIMUM [address] [place] [address] ERICKSON RENETTA, MAXILLOFA 8 MEDICAL CHAPARRO P CIAL W/[place] [address] [facility] GELLER HEAD/BRAI 8 [facility] N W/O INC INC CONTRAST MATERIAL 3D 36449 [facility] GELLER RENDERING 8 [facility] W/INTERP INC INC & POSTPROCE SS SUPERVISI ON 3D 22145 [facility] GELLER RENDERING 8 [facility] INC INC W/INTERP& POSTPROC DIFF WORK STATION Encounters Encounter Start End Date Code Location Performer Type Date OFFICE 48510 MARLENE REDDYPATIEN 0 0 MERCEDES MERCEDES T VISIT 15 MINUTES OFFICE 87062 MARLENE REDDYPATIEN 0 0 MERCEDES MERCEDES T VISIT 15 MINUTES [facility]OSPITAL [facility] - 0 0 [facility] OUTPATIEN INC T OFFICE 46186 WINTERPORTDANIEL SEALS 0 0 FAMILY BALBINA R T NEW 20 CHIROPRAC MINUTES [facility] YIMI - 9 9 [facility] OUTPATIEN INC T EMERGENCY 93855 ERNESTINA JOHNSON DEPT 9 9 EMERGENCY TOMY VISIT SERVICES A HIGH SEVERITY& ASSOCIATE THREAT S [facility] - 9 9 [facility] EMERGENCY 39394 ERNESTINA SLATER, 9 9 EMERGENCY NEERAJ DEPARTMEN SERVICES O T VISIT HIGH/URGE ASSOCIATE NT S SEVERITY EMERGENCY 18790 Y[facility]I 9 9 [facility] DEPARTMEN INC T VISIT MODERATE SEVERITY HOSPITAL [facility] - 9 9 [facility] OUTPATIEN INC T OFFICE 38637 MARLENE ROSARIO OUTPATIEN 9 9 MERCEDES A MERCEDES A T VISIT 15 MINUTES OFFICE 31785 MARLENE ROSARIO OUTPATIEN 9 9 MERCEDES A MERCEDES A T VISIT 15 MINUTES OFFICE 11322 MARLENE ROSARIO OUTPATIEN 9 9 MERCEDES A MERCEDES A T VISIT 15 MINUTES OFFICE 54241 MARLENE ROSARIO OUTPATIEN 9 9 MERCEDES A MERCEDES A T VISIT 15 MINUTES HOSPITAL [facility] - 9 9 [facility] 83836 MARLENE ROSARIO OUTPATIEN 9 9 MERCEDES A MERCEDES A T VISIT 15 MINUTES EMERGENCY 62802 [facility] 9 9 [facility] INC T VISIT LOW/MODER SEVERITY HOSPITAL [facility] - 9 9 [facility] T EMERGENCY 46815 ANDRES BANGURA, 9 9 [facility] T VISIT ON MODERATE SEVERITY OFFICE 81872 MARLENE ROSARIO OUTPATIEN 8 8 MERCEDES A MERCEDES A T VISIT 15 MINUTES OFFICE 15358 MARLENE ROSARIO OUTPATIEN 8 8 MERCEDES A MERCEDES A T VISIT 15 MINUTES OFFICE 61651 MARLENE ROSARIO OUTPATIEN 8 8 MERCEDES A MERCEDES A T VISIT 15 MINUTES OFFICE 61050 MARLENE ROSARIO OUTPATIEN 8 8 MERCEDES A MERCEDES A T VISIT 15 MINUTES EMERGENCY 25211 [facility] 8 8 [facility] T VISIT LOW/MODER SEVERITY HOSPITAL [facility] - 8 8 [facility] - 8 8 [facility] T EMERGENCY 13814 YIMI 8 8 [facility] T VISIT LOW/MODER SEVERITY OFFICE 30590 MARLENE ROSARIO OUTPATIEN 7 7 MERCEDES Zimmer T VISIT 15 MINUTES OFFICE 50824 MARLENE ROSARIO OUTPATIEN 7 7 MERCEDES Zimmer T VISIT 15 MINUTES
--- OUTSIDE RECORDS SUMMARY | 2016-08-26 09:44 | External Medical Summary Rpt ---
Author Author MAYNOR Dove, MAYNOR [employer] Organization [employer] Address Unknown Phone Unavailable Results Vit D 25-OH Observa Value Referen Units Interpr Notes Date tion ce etation Range Vitamin 32.8 30.0 - ng/mL No INTERPR Nov 15 D-25 120.0 informa ETIVE 2014 OH tion in INFORMA 9:57 AM source TION: data Vitamin D, 25-Hydr oxy\.br \\.br\< 20 ng/mL Deficie ncy\.br \20 - 29 ng/mL Insuffi ciency\ .br\30 - 80 ng/mL Optimum Level\. br\>120 ng/mL Possibl e Toxicit y\.br\\ .br\NOT E: For infants and childre n up to 17 years of age, the optimum level is >=20 ng/mL. This assay accurat magnolia quantif ies the sum of vitamin D3, 25-Hydr oxy and vitamin D2, 25-Hydr oxy. Glyco Observa Value Referen Units Interpr Notes Date tion ce etation Range Hemoglo 5.3 <=7.0 % No Initial Nov 14 bin informa 2013 A1c/Hem tion in Diagnos 11:06 oglobin source tic AM .total data Criteri in a\.br\< Blood 5.7 % Normal\ .br\5.7 - 6.4 % At risk for diabete s mellitu s\.br\> = 6.5 % Consist ent with diabete s mellitu s\.br\\ .br\Nieves betes monitor ing\.br \Target Value (ADA recomme nded): < 7 % Lipid Scr Observa Value Referen Units Interpr Notes Date tion ce etation Range Cholest 213 <=200 mg/dL High < 200 Oct 3 americo 2013 [Percen 8:37 PM tile] Desirab le\.br\ 200 - 239 Borderl ine High\.b r\>= 240 High TRIGLYC 242 <=150 mg/dL High < 150 Nov 13 ERIDES. 2014 TOTAL Normal\ 8:37 PM .br\150 - 199 Borderl ine High\.b r\200 - 499 High\.b r\ >= 500 Very High CHOLEST 26 >=40 mg/dL Low > 60 Nov 13 EROLS.I 2014 N HDL Optimal 8:37 PM \.br\40 - 60 Accepta ble\.br \ < 40 Low LDL 139 <=100 mg/dL High < 100 Nov 13 Calcula 2014 isak 8:37 PM Optimal \.br\10 0 - 129 Near or above optimal \.br\13 0 - 159 Borderl ine High\.b r\160 - 189 High\.b r\ >= 190 Very High TSH Observa Value Referen Units Interpr Notes Date tion ce etation Range Thyrotr 1.520 0.270 - mcIU/mL No No Nov 3 opin 4.200 informa informa 2013 [Units/ tion in tion in 8:37 PM volume] source source in data data Serum or Plasma Auto Diff Observa Value Referen Units Interpr Notes Date tion ce etation Range Neutrop 50.3 No % No No Nov 3 hils informa informa informa 2013 [#/volu tion in tion in tion in 7:56 PM me] in source source source Blood data data data by Automat ed count Lymphoc 41.7 No % No No Nov 13 ytes informa informa informa 2013 [#/volu tion in tion in tion in 7:56 PM me] in source source source Blood data data data by Automat ed count Monocyt 6.3 No % No No Nov 13 es informa informa informa 2013 [#/volu tion in tion in tion in 7:56 PM me] in source source source Blood data data data by Automat ed count Eos 1.3 No % No No Nov 3 Percent informa informa informa 2013 tion in tion in tion in 7:56 PM source source source data data data Baso 0.4 No % No No Nov 3 Percent informa informa informa 2013 tion in tion in tion in 7:56 PM source source source data data data Neut# 3.7 1.8 - x10(3)/ No No Nov 3 7.7 mcL informa informa 2013 tion in tion in 7:56 PM source source data data Lymph# 3.1 0.6 - x10(3)/ No No Oct 3 4.8 mcL informa informa 2013 tion in tion in 7:56 PM source source data data [place]# 0.5 0.0 - x10(3)/ No No Oct 3 1.3 mcL informa informa 2013 tion in tion in 7:56 PM source source data data Eos# 0.1 0.0 - x10(3)/ No No Oct 3 0.5 mcL informa informa 2013 tion in tion in 7:56 PM source source data data Baso# 0.0 0.0 - x10(3)/ No No Oct 3 0.2 [facility] informa informa 2013 tion in tion in 7:56 PM source source data data CBC Observa Value Referen Units Interpr Notes Date tion ce etation Range LEUKOCY 7.4 4.0 - x10(3)/ No No Oct 3 JAS 11.0 [facility] informa informa 2013 tion in tion in 7:56 PM source source data data Erythro 5.67 4.30 - x10(6)/ No No Oct 3 cytes 5.81 [facility] informa informa 2013 [#/volu tion in tion in 7:56 PM me] in source source Blood data data by Automat ed count Hemoglo 16.6 13.5 - gm/dL No No Oct 3 bin 17.1 informa informa 2013 [Mass/v tion in tion in 7:56 PM olume] source source in data data Blood Hematoc 50.0 38.9 - % No No Oct 3 rit 51.6 informa informa 2013 [Volume tion in tion in 7:56 PM source source Fractio data data n] of Blood by Automat ed count Erythro 88.2 82.5 - fL No No Oct 3 cyte 99.8 informa informa 2013 mean tion in tion in 7:56 PM corpusc source source ular data data volume [Entiti c volume] by Automat ed count Erythro 29.3 27.0 - pg No No Oct 3 cyte 34.3 informa informa 2013 mean tion in tion in 7:56 PM corpusc source source ular data data hemoglo bin [Entiti c mass] by Automat ed count Erythro 33.2 32.1 - gm/dL No No Nov 13 cyte 35.3 informa informa 2014 mean tion in tion in 7:56 PM corpusc source source ular data data hemoglo bin concent ration [Mass/v olume] by Automat ed count Erythro 13.3 11.5 - % No No Nov 13 cyte 15.0 informa informa 2014 distrib tion in tion in 7:56 PM ution source source width data data [Ratio] by Automat ed count Platele 180 144 - x10(3)/ No No Nov 13 ts 423 mcL informa informa 2014 [#/volu tion in tion in 7:56 PM me] in source source Blood data data by Automat ed count MPV 9.5 6.8 - fL No No Nov 13 10.8 informa informa 2014 tion in tion in 7:56 PM source source data data
--- OUTSIDE RECORDS SUMMARY | 2016-08-26 09:44 | External Medical Summary Rpt ---
Author Author , MAYNOR MCGUIRE Address Unknown Phone [email or web address] Immunization Name Date Rout CVX Reac Dose Comm Prov Is Faci e tion ent ider Refu lity Give sed n Td 08-2 9 999 Hist H201 No H201 (nat 4-20 oric lt), 05 al Info adso rmat rbed ion - Sour ce Unsp ecif ied DTaP 09-1 107 999 Hist H149 No H149 , UF 5-19 oric 97 al Info rmat ion - Sour ce Unsp ecif ied MMR 09-1 3 999 Hist H149 No H149 5-19 oric 97 al Info rmat ion - Sour ce Unsp ecif ied Dixon 09-1 2 999 Hist H149 No H149 o-OP 5-19 oric V 97 al Info rmat ion - Sour ce Unsp ecif ied Vari 09-1 21 999 Hist H149 No H149 cell 5-19 oric a 97 al Info rmat ion - Sour ce Unsp ecif ied
--- OUTSIDE RECORDS SUMMARY | 2016-08-26 09:44 | External Medical Summary Rpt ---
Author Author , MAYNOR MCGUIRE Address Unknown Phone [email or web address] Immunization Name Date Rout CVX Reac Dose [...]
--- OUTSIDE RECORDS SUMMARY | 2016-08-26 09:44 | External Medical Summary Rpt ---
[...] High < 100 Nov 13 Calcula 2014 iska 8:37 PM Optimal \.br\10 0 - 129 [...] in 7:56 PM source source data data [place]# 0.5 0.0 - x10(3)/ No No Oct 3 1.3 mcL informa informa 2013 tion in tion in 7:56 PM source source data data Eos# 0.1 0.0 - x10(3)/ No No Oct 3 0.5 mcL informa informa 2013 tion in tion in 7:56 PM source source data data Baso# 0.0 0.0 - x10(3)/ No No Oct 3 0.2 [facility] informa informa 2013 tion in tion in 7:56 PM source source data data CBC Observa Value Referen Units Interpr Notes Date tion ce etation Range LEUKOCY 7.4 4.0 - x10(3)/ No No Oct 3 JAS 11.0 [facility] informa informa 2013 tion in tion in 7:56 PM source source data data Erythro 5.67 4.30 - x10(6)/ No No Oct 3 cytes 5.81 [facility] informa informa 2013 [#/volu tion in tion [...]
[2016-08-26 10:08] LABS: HEMOGLOBIN 16.3 g/dL (14.1-18.0); LYMPH # 2.2 K/mm3 (0.7-4.5); LYMPH % 21.1 % (10-50)
--- NOTE | 2016-08-26 10:36 | RADIOLOGY REPORT PS360 ---
CT ABD PELVIS W/O CONTRAST COMPARISON: None HISTORY: Right flank pain, hematuria TECHNIQUE: Multiaxial scans obtained from hemidiaphragms the pelvic floor and were performed without IV or oral contrast. Sagittal and coronal reformats were evaluated as well. FINDINGS: The lower lung sanchez are clear, there is a calcified granuloma in both lower lobes. There is a small hiatal hernia. The liver spleen stomach and pancreas appear grossly normal. The gallbladder is probably normal but there is suggestion of increased density in the dependent portion of gallbladder and biliary sludge cannot be excluded. The adrenal glands are normal. The kidneys are normal size and is mild hydronephrosis of the right kidney with mild hydroureter down to a 2 to 3 mm calculus sitting in the distal ureter at the UV junction. Left kidney and left ureter are normal. Urinary bladder and prostate are normal. Small bowel appears normal. The appendix appears normal. There is large amount stool in the cecum and ascending colon. IMPRESSION: Small distal ureteral calculus sitting at the UV junction causing mild obstructive uropathy of the right kidney
[2016-08-26] MEDS ORDERED: ZOFRAN ODT4 MG PO (10:57)
[2016-08-26] MEDS ORDERED: FLOMAX0.4 MG PO (10:57)
[2016-08-26] MEDS ORDERED: PERCOCET1 TAB PO (10:57)
[2016-08-26] MEDS ORDERED: IBUPROFEN800 MG PO (10:57)
--- NOTE | 2016-08-26 11:13 | RADIOLOGY REPORT PS360 ---
LUMBAR SPINE 5 VIEWS COMPARISON: None HISTORY: Right-sided lower back pain TECHNIQUE: AP lateral and oblique views and spot view lumbosacral junction FINDINGS: There is normal curvature and alignment. L1-L5 appear intact and disc spaces are well maintained throughout. There is no pars defect. There is a spina bifida occulta of S1. The SI joints appear normal. IMPRESSION: Spina bifida occulta S1 otherwise normal study
[2016-08-26 11:33] VITALS: BP 136/86
== END 2016-08-26 11:34 | disposition home or self-care (01) ==
LOC: ER 08:55
PROVIDERS: Emergency Medicine
DX: N13.2 Hydronephrosis with renal and ureteral calculous obstruction (principal)
CPT/HCPCS: J2405